=== PATIENT | male | born 1960 | race Caucasian/White ===

== ENCOUNTER 2022-01-27 09:53 | Outpatient (CLI) | payer BC, SELFPAY | END 2022-01-27 09:54 | disposition home or self-care (01) | LOC: LAB 09:54 | PROVIDERS: PCP Family Medicine; Visit Provider Orthopaedic Surgery | DX: Z01.818 Encounter for other preprocedural examination (principal) | CPT/HCPCS: 36415; 86850; 86900; 86901 ==

== ENCOUNTER 2022-01-29 05:54 | Day surgery (SDC) | payer BC, SELFPAY ==
[2022-01-29] VITALS (30 sets, daily range): BP systolic 92–139; BP diastolic 44–93; PULSE 62–120; RESP 16–18; TEMP 35.7–37.1; O2SAT 94–98; BMI 37.1
[2022-01-29] MEDS: CELECOXIB 200 MG CAPSULE PO ×2 (06:06→21:40)
[2022-01-29] MEDS: ACETAMINOPHEN 500 MG TABLET 1000 MG PO ×3 (06:06→21:38)
[2022-01-29] MEDS: OXYCODONE (CR) 10 MG TAB.ER.12H PO (06:06)
[2022-01-29] MEDS: LACTATED RINGERS 1000 ML 1,000 ML 100 ML IV (06:30)
[2022-01-29] MEDS: LACTATED RINGERS 1000 ML 1,000 ML 35 ML IV (06:30)
[2022-01-29] MEDS: MIDAZOLAM HCL 1 MG/ML inj IVP (07:15)
[2022-01-29] MEDS: fentaNYL 100 MCG/2 ML inj IVP (07:15)
--- NOTE | 2022-01-29 07:25 | SUR.PREOP ---
TIME?OUT:?.0710 PT/RN/MDA?VERIFICATION?OF?SURGICAL?SITE,?PROCEDURE,?AND?CONSENT OBTAINED?PRIOR?TO?INVASIVE?PROCEDURE.
--- NOTE | 2022-01-29 08:12 | W.PM.NB ---
Nerve Block Nerve Block Time Seen by Provider: 07:00 Date Seen: 01/29/22 Type of block requested by surgeon for post-operative analgesia: TAINA/LFCN Side: right Time out performed: Yes Verification of patient name: Yes Verification of date of : Yes Site marking: site marked Name of person performing procedure: Andrés Continuous monitoring 1st: Was continuous monitoring of O2 sat, B/P, personnel monitor, recorded every 15 minutes?: Yes Vital Signs: Last Vital Signs Temp 98.8 F 01/29/22 07:02 Pulse 70 01/29/22 07:30 Resp 16 01/29/22 07:30 BP 102/51 L 01/29/22 07:30 Pulse Ox 98 01/29/22 07:30 Procedure Ultrasound guided. Images saved: Yes Medications given in 5ml increments after negative aspiration: Ropivicaine %: 0.5 mL: 30 Needle gauge: 20 Decadron (mg): 10 Precedex (mg): 0.02 Patient tolerated procedure well: Yes
[2022-01-29] MEDS: CEFAZOLIN 2 GM INJ IVP (08:15)
--- NOTE | 2022-01-29 08:17 | CRLHL7_ITS ---
For Patients: As a result of the Cures Act, medical imaging exams and procedure reports are released immediately into your electronic medical record. You may view this report before your referring provider. If you have questions, please contact your health care provider. Indication: Intra op KYM Technique: Single portable view intraoperative Findings: Right hip arthroplasty in satisfactory position. 68 seconds fluoro time. Dictated by Earnestine Valenzuela MD @ 01/29/2022 10:59:26 AM (Electronically Signed)
--- NOTE | 2022-01-29 08:17 | CRLHL7_ITS ---
For Patients: As a result of the Cures Act, medical imaging exams and procedure reports are released immediately into your electronic medical record. You may view this report before your referring provider. If you have questions, please contact your health care provider. Indication: Postop Technique: AP pelvis and right hip views Comparison: No comparison Findings: Right hip arthroplasty in satisfactory position. Normal alignment. Minimal degenerative change of the left hip. Dictated by Earnestine Valenzuela MD @ 01/29/2022 12:01:24 PM (Electronically Signed)
--- NOTE | 2022-01-29 08:28 | W.PM.NB ---
Nerve Block Nerve Block Type of block requested by surgeon for post-operative analgesia: geniculars and total knee (Adductor) Time out performed: Yes Verification of patient name: Yes Verification of date of : Yes Site marking: site marked Procedure Ultrasound guided. Images saved: Yes Medications given in 5ml increments after negative aspiration: Ropivicaine %: 0.5 mL: 30 Needle gauge: 20 Decadron (mg): 10 Precedex (mg): 0.02 Patient tolerated procedure well: Yes Additional comments: Needle noted adjacent to nerve
--- NOTE | 2022-01-29 08:36 | P.ANBPRC_ITS ---
Anesthesia Procedures Epidural Insertion Patient Location: OB Reason for Block: primary anesthetic Patient Position: sitting Performed By: Kelvin Bowen Preanesthetic Checklist: IV checked, risks and benefits discussed, surgical consent, monitors and equipment checked, pre-op evaluation, timeout performed and anesthesia consent Prep: chlorhexidine gluconate Monitoring: blood pressure monitoring, family service counselor, continuous pulse oximetry and heart rate Approach: midline Vertebral Space: lumbar (1-5) Epidural Technique: JOEL saline Needle Type: Tuohy needle Injection Technique: continuous shot (catheter) Needle gauge: 17 Needle Length (cm): 10 cm Needle Insertion Depth (cm): 5 Catheter Gauge: 19 Catheter Type: multi-orifice Catheter at skin depth (cm): 10 Test Dose Result: negative and lidocaine 1.5% with epinephrine 1 to 200,000
--- NOTE | 2022-01-29 08:40 | P.ANBPRC_ITS ---
Anesthesia Procedures Epidural Insertion Patient Location: OB Reason for Block: primary anesthetic Patient Position: sitting Performed By: Kelvin Bowen Preanesthetic Checklist: IV checked, risks and benefits discussed, surgical consent, monitors and equipment checked, pre-op evaluation, timeout performed and anesthesia consent Prep: chlorhexidine gluconate Monitoring: blood pressure monitoring, desk monitor, continuous pulse oximetry and heart rate Approach: midline Vertebral Space: lumbar (1-5) Epidural Technique: JOEL saline Needle Type: Tuohy needle Injection Technique: continuous shot (catheter) Needle gauge: 17 Needle Length (cm): 10 cm Needle Insertion Depth (cm): 5 Catheter Gauge: 19 Catheter Type: multi-orifice Catheter at skin depth (cm): 10 Test Dose Result: negative and lidocaine 1.5% with epinephrine 1 to 200,000
--- NOTE | 2022-01-29 09:54 | P.ORPRC_ITS ---
Procedure Note Procedure: SURGEON: Silver Ansari MD SALES REPRESENTATIVE WIRE ROPE: Dominique Leo PA-C, HOLLIS Sidhu PREOPERATIVE DIAGNOSIS: Right hip osteoarthritis POSTOPERATIVE DIAGNOSIS: Right hip osteoarthritis NAME OF OPERATION: Right total hip arthroplasty IMPLANTS: 1. [employer] [place] # 58 sector ingrowth cup 2. 36 x 58 +4 neutral polyethylene 3. Actis # 7 high offset collared ingrowth stem 4. 36 + 1.5 ceramic femoral head ANESTHESIA: General ESTIMATED BLOOD LOSS: 300 cc COMPLICATIONS: None SPECIMENS: None DRAINS: None PREOPERATIVE ANTIBIOTICS: Ancef 3 grams INDICATIONS: The patient is a 61-year-old with a longstanding history of severe, unrelenting right hip pain secondary to end-stage right hip osteoa rthritis. Despite appropriate nonoperative management, including activity modification, use of an assist device, anti-inflammatories, [id number] pain medication, physical therapy and injections, they continue to have pain and disability. Operative intervention was offered. The risks, benefits and expected outcomes were discussed in detail. These included but were not limited to: Infection, bleeding, injury to blood vessel or nerve, venous thromboembolism. All questions were answered to their satisfaction. Use of an employee relations assistant was necessary throughout the case for patient positioning and safety, soft tissue retraction and closure. PROCEDURE: The patient was placed supine on the [place] table. General anesthesia was administered. The employee relations assistant made sure the patient was properly positioned. The right hip was prepped and draped in the usual sterile fashion. The image intensifier was brought in for a perfect AP pelvis and a perfect double tear drop AP view of each hip which were used for intraoperative templating with our fluoroscopic guide. An oblique incision was made 3 cm distal and 3 cm lateral to the anterior superior iliac spine. The employee relations assistant retracted the soft tissues to protect them. Subcutaneous dissection was taken with electrocautery to the superficial fascia. The fascia was divided in line with the incision. Blunt dissection was carried medially to the tensor fascia beatrice and sartorius interval. Deep dissection was carried with electrocautery. The circumflex vessels were cauterized and divided. The capsule was exposed and then divided in a T- fashion, tagged with #1 Ethibond sutures. Retractors were placed in the joint, held by the employee relations assistant. The corkscrew was placed in the femoral head. The neck cut was made in the subcapital region. We made a second neck cut more distal. The napkin ring of bone was removed. The femoral head was removed intact. Acetabular retractors were placed, held by the employee relations assistant. The labrum was sharply debrided. The capsule was released. The 43 mm reamer was used to the true medial wall. We then enlarged in 2 mm increments using the image intensifier for our reamer placement. We impacted the cup which had excellent purchase. We placed the hole eliminator and the polyethylene. Attention was then turned to the proximal femur. The limb was placed in 140 degrees of external rotation, maximum extension and adduction. A significant amount of time was spent releasing the capsule to allow us to deliver the femur into the wound and complete the femoral side safely. Retractors were held by michael castelan employee relations assistant throughout the femoral preparation. The box feeder and canal finder were used. Broaches were used to a stable size. The calcar reamer was used. Trial components were placed. The hip was reduced and was found to be stable with appropriate soft tissue tension. Length and offset had been nicely restored using the image intensifier and our fluoroscopic guide. Trial components were removed. The stem was impacted. We placed the femoral head. Again, the hip was reduced and was found to be stable with appropriate soft tissue tension. Length and offset had been nicely restored. The employee relations assistant did a three minute dilute Betadine solution soak. The employee relations assistant irrigated the wound with 3 liters of normal saline via pulse lavage. The employee relations assistant repaired the anterior capsule with a #1 Vicryl and our previously placed Ethibond sutures. The employee relations assistant closed the fascia over the tensor fascia beatrice with a #1 PDO Stratafix, subcutaneous tissues with 2-0 Vicryl, skin with a running 3-0 Stratafix and glue. A dry dressing was applied by the employee relations assistant. Sponge and needle counts were correct x 2. The patient tolerated the procedure well; there were no apparent complications. They were awakened and extubated in the operating room, sent to the Post-Anesthesia Care Unit in satisfactory condition. PLAN: 1. The patient will be mobilized with physical therapy, weight-bearing as tolerates 2. Xarelto x 5 days then aspirin x 30 days will be used for DVT prophylaxis 3. The patient will be discharged once medically appropriate
--- NOTE | 2022-01-29 10:43 | W.ANESCHARGE ---
Anesthesia Charges Start Date/Time Anesthesia Start Date: 01/29/22 Anesthesia Start Time: 07:55 Stop Date/Time Anesthesia Stop Date: 01/29/22 Anesthesia Stop Time: 10:40 Summary Emergency: No
[2022-01-29] MEDS: HYDROmorphone 0.5 mg/0.5 ml inj IVP ×2 (11:20→11:34)
[2022-01-29] MEDS: OXYCODONE 5 MG TABLET PO ×4 (12:24→22:14)
--- NOTE | 2022-01-29 13:01 | W.ANESCHARGE ---
Anesthesia Charges Start Date/Time Anesthesia Start Date: 01/29/22 Anesthesia Start Time: 07:55 Stop Date/Time Anesthesia Stop Date: 01/29/22 Anesthesia Stop Time: 10:40 Summary Emergency: No
[2022-01-29] MEDS: CEFAZOLIN 3 GM in 0.9 % SODIUM CHLORIDE 100 ml 100 ML IVPB ×2 (14:20→21:46)
--- NOTE | 2022-01-29 16:26 | P.IMCN_ITS ---
Date of Consult Consult date: 01/29/22 Requesting Physician: Orthopedics Primary Care Provider: Hipolito Delgadillo MD Consult Narrative Reason for consult: 61-year-old male seen in consultation for management of medical problems f Narrative: Ronnie Kidd is a 61 year old male seen in consultation for management of medical problems following right total hip arthroplasty. Procedure performed today by Dr. Ansari. No complications. Postoperatively patient reports doing well. He is having more right knee pain than right hip pain when I see him. The right knee pain has been a long-standing problem prior to surgery. Patient has known osteoarthritis of both knees. There was some suspicion that his right hip arthritis was causing referred right knee pain. Patient has no other concerns at this time. Specifically no nausea or dyspnea. Preoperatively he has been doing well. There were no concerns at his preop evaluation. He has had no recent illness. Patient lives at home with his and his son and her son. 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 Previously this was a physically active job for him but now mostly sitting and standing. His home has 3 steps to get in but then he can live on 1 level temporarily. Review of Systems Narrative: Patient reports no other health concerns today. He has had no chest pain, shortness of breath, cold, fever, sore throat, shortness of breath, nausea, vomiting, abdominal pain, diarrhea, constipation, urinary symptoms including hesitancy or frequency or dysuria. No history of bleeding or blood clotting problems. No previous problems with anesthesia. [facility] Medical History (Updated 01/29/22 @ 16:38 by Israel Quinn MD) Alcohol dependence Ascending aorta dilatation Atherosclerotic heart disease of [place] coronary artery with other forms of angina pectoris Hypertension Latent autoimmune diabetes in adults, managed as type 2 Obstructive sleep apnea syndrome Paroxysmal atrial fibrillation Peripheral arterial occlusive disease Right foot drop Surgical History (Updated 01/28/22 @ 13:54 by Ame Busch RN) Status post vasectomy Social History Smoking Status: Never smoker Do you use any of these nicotine containing products: None Second hand tobacco smoke exposure: No How often do you have a drink containing alcohol: never How often do you have six or more drinks on one occasion: Never AUDIT-C Alcohol total score: 0 Non-prescribed substance use: denies use Caffeine: Yes service: No Meds Home Medications and Allergies Home Medications Medication Instructions Recorded Confirmed Type atorvastatin 20 mg tablet 20 mg PO HS 01/23/22 01/29/22 History chlorthalidone 25 mg tablet 25 mg PO DAILY 01/23/22 01/29/22 History furosemide 20 mg tablet 20 mg PO DAILY PRN 01/23/22 01/29/22 History gabapentin 100 mg capsule 200 mg PO HS 01/23/22 01/29/22 History lisinopril 40 mg tablet 40 mg PO DAILY 01/23/22 01/29/22 History metformin 500 mg tablet See Rx Instructions .ROUTE .COMPLEX 01/23/22 01/29/22 History metoprolol succinate 100 mg 100 mg PO DAILY 01/23/22 01/29/22 History tablet,extended release 24 hr rivaroxaban 20 mg tablet 20 mg PO DAILY 01/23/22 01/29/22 History Allergies Allergy/AdvReac Type Severity Reaction Status Date / Time No Known Allergies Allergy Verified 01/29/22 06:08 Exam Narrative: Exam Narrative: he is alert and appears in no distress. He gives his own history. Head is normal. Eyes normal. Oropharynx with very small airway. Neck is supple without mass or adenopathy. Respirations are clear to auscultation. Breathing is unlabored. No wheezing, rales, rhonchi. Cardiovascular: S1, S2, Irregular rhythm. Abdomen: Bowel sounds active. Abdomen is soft without tenderness or mass. External genitalia normal. He has a right footdrop which has been present for 22 years. Intact pulses and sensation in both feet. Right knee without obvious warmth, redness, effusion, signs of trauma or tenderness on palpation. No lower extremity edema Const: Vital Signs, click to edit/add: Vital Signs - 24 hr 01/29/22 07:02 01/29/22 07:15 01/29/22 07:20 Temperature 98.8 F Pulse Rate 83 64 62 Pulse Rate [Left P ulse Oximeter] Respiratory Rate 16 16 16 Blood Pressure 139/85 113/80 114/80 Blood Pressure [Ri ght Arm] Pulse Oximetry 98 98 98 01/29/22 07:25 01/29/22 07:30 01/29/22 10:34 Temperature 98.2 F Pulse Rate 74 70 90 Pulse Rate [Left P ulse Oximeter] Respiratory Rate 16 16 16 Blood Pressure 100/65 102/51 L 92/72 Blood Pressure [Ri ght Arm] Pulse Oximetry 98 98 98 01/29/22 10:45 01/29/22 10:50 01/29/22 10:55 Temperature 98.2 F Pulse Rate 99 70 85 Pulse Rate [Left P ulse Oximeter] Respiratory Rate 16 16 18 Blood Pressure 95/59 L 105/44 L 100/83 Blood Pressure [Ri ght Arm] Pulse Oximetry 97 98 98 01/29/22 11:00 01/29/22 11:10 01/29/22 11:15 Temperature 98.2 F 98.2 F Pulse Rate 83 81 78 Pulse Rate [Left P ulse Oximeter] Respiratory Rate 18 16 16 Blood Pressure 113/81 111/66 107/82 Blood Pressure [Ri ght Arm] Pulse Oximetry 97 98 98 01/29/22 11:25 01/29/22 11:30 01/29/22 11:35 Temperature 98.8 F 98.2 F Pulse Rate 70 70 81 Pulse Rate [Left P ulse Oximeter] Respiratory Rate 16 18 16 Blood Pressure 107/82 98/54 L 100/62 Blood Pressure [Ri ght Arm] Pulse Oximetry 98 98 98 01/29/22 11:45 01/29/22 12:00 01/29/22 12:15 Temperature 96.2 F L 96.5 F L 96.5 F L Pulse Rate 87 Pulse Rate [Left P ulse Oximeter] 87 79 84 Respiratory Rate 16 18 18 Blood Pressure 110/58 L Blood Pressure [Ri ght Arm] 110/73 106/78 112/79 Pulse Oximetry 96 95 96 01/29/22 12:30 01/29/22 12:45 01/29/22 13:15 Temperature 96.7 F L 96.7 F L 96.7 F L Pulse Rate Pulse Rate [Left P ulse Oximeter] 84 80 84 Respiratory Rate 18 18 18 Blood Pressure Blood Pressure [Ri ght Arm] 121/75 110/84 112/75 Pulse Oximetry 97 97 98 01/29/22 14:00 Temperature 96.9 F L Pulse Rate Pulse Rate [Left P ulse Oximeter] 83 Respiratory Rate 16 Blood Pressure Blood Pressure [Ri ght Arm] 105/70 Pulse Oximetry 94 Documenting provider has reviewed patient's vital signs: yes Assessment and Plan Assessment and plan (1) Right foot drop: Problem comment: AFO Status: Acute Assessment and Plan: use AFO (2) Latent autoimmune diabetes in adults, managed as type 2: Problem comment: resume metformin and sliding scale insulin Status: Acute (3) Obstructive sleep apnea syndrome: Problem comment: on home CPAP. Status: Acute Assessment and Plan: Family to bring in home CPAP (4) Paroxysmal atrial fibrillation: Problem comment: on anticoagulation with rivaroxaban and rate control with metoprolol. Status: Acute Assessment and Plan: resume metformin and rivaroxaban (5) Hypertension: Status: Acute Assessment and Plan: resume blood pressure medicines as blood pressure allows.
[2022-01-29] MEDS: LACTATED RINGERS 1000 ML 1,000 ML 75 ML IV (16:43)
[2022-01-29] MEDS: METFORMIN 500 MG TABLET 1000 MG PO (19:15)
[2022-01-29] MEDS: GABAPENTIN 100 MG CAPSULE 200 MG PO (21:39)
[2022-01-29] MEDS: SENNOSIDES 1 TAB TABLET 2 TAB PO (21:40)
[2022-01-29] MEDS: ATORVASTATIN 10 MG TABLET 20 MG PO (21:40)
[2022-01-29] MEDS: METOPROLOL SUCCINATE (XL) 100 MG TAB PO (22:16)
[2022-01-29 22:25] LABS: Glucose, Point-of-Care* 190 mg/dl (60-115)
--- NOTE | 2022-01-29 23:00 | PC.NURSE ---
Shift Note [id number]: At 1900 VS assessment pt HR increased to 120. Previous HR's in 80's. MD updated and pt given PO dose of Metoprolol. VS otherwise WNL. Surgical dressing to right hip C,D,&I with active ice. Moves well with SBA.
[2022-01-30 02:04] VITALS: TEMP 36.8
[2022-01-30] MEDS: ACETAMINOPHEN 500 MG TABLET 1000 MG PO ×2 (02:04→09:05)
[2022-01-30 03:00] VITALS: BP 113/82; PULSE 111; RESP 16; TEMP 36.8; O2SAT 95
[2022-01-30] MEDS: CEFAZOLIN 3 GM in 0.9 % SODIUM CHLORIDE 100 ml 100 ML IVPB (05:42)
[2022-01-30] MEDS: OXYCODONE 5 MG TABLET PO ×2 (06:24→10:52)
--- NOTE | 2022-01-30 06:56 | PC.NURSE ---
shift note 23-07: pt pleasant and cooperative. rating pain 2/10 at rest and 5-6/10 with ambulation. SBA with walker and gb, tolerating ambulating to BR very well. VSS. Dressing to surgical site CDI, active ice on.
[2022-01-30 07:45] LABS: INR 0.95 (0.91-1.10); Prothrombin Time 13.1 Seconds
[2022-01-30 08:00] VITALS: BP 121/92; PULSE 77; RESP 18; TEMP 36.7; O2SAT 97
[2022-01-30] MEDS: RIVAROXABAN 10 MG TABLET 20 MG PO (09:06)
[2022-01-30] MEDS: SENNOSIDES 1 TAB TABLET 2 TAB PO (09:06)
[2022-01-30] MEDS: CELECOXIB 200 MG CAPSULE PO (09:07)
[2022-01-30] MEDS: METFORMIN 500 MG TABLET PO (09:07)
[2022-01-30] MEDS: METOPROLOL SUCCINATE (XL) 100 MG TAB PO (09:09)
--- NOTE | 2022-01-30 10:59 | P.DS_ITS ---
DS: Providers Provider Time Seen by Provider: 10:59 Date Seen: 01/30/22 Primary care physician: Hipolito Delgadillo MD Consults: 01/29/22 09:50 Consult to Occupational Therapy [CONS] Routine Comment: See nursing Activity Order Reason(s) for OT Consult:: Evaluate and Treat Any Restrictions?:: No Restrictions Consult to Physical Therapy [CONS] Routine Comment: Ambulate in the burger today. Reason(s) for PT Consult:: Evaluate and Treat Any Restrictions?:: No Restrictions Consult to Senior Applications Developer [CONS] Routine Comment: Reason for Consult:: Discharge Planning Needs Attending Physician on discharge: Silver Ansari MD Date of Discharge: 01/30/22 DS: Diagnosis Discharge Diagnosis (1) Right foot drop: Status: Acute Problem details: AFO (2) Paroxysmal atrial fibrillation: Status: Acute (3) Hypertension: Status: Acute Problem details: blood pressure adequately controlled. Resume home medications on discharge. (4) Paroxysmal atrial fibrillation: Status: Acute Problem details: on anticoagulation with rivaroxaban and rate control with metoprolol. Some tachycardia yesterday because he did not take metoprolol yesterday morning. This improved with resumption of metoprolol (5) Obstructive sleep apnea syndrome: Status: Acute Problem details: on home CPAP. DS: Summary Hospital Course Hospital Course: patient had it right total hip arthroplasty. Postoperatively primarily concerned about right knee pain. That is much better today. He is doing well with ambulation with physical therapy and occupational therapy. Time Spent with Patient Time attestation: Total time spent providing and/or coordinating discharge services: Time spent: Less than 30 minutes Exam Narrative: Exam Narrative: He is alert and appears in no distress. Breathing is unlabored. He is moving well with therapy. He is wearing his AFO today. Const: Vital Signs, click to edit/add: Vital Signs - 24 hr 01/29/22 11:00 01/29/22 11:10 01/29/22 11:15 Temperature 98.2 F 98.2 F Pulse Rate 83 81 78 Pulse Rate [Left P ulse Oximeter] Respiratory Rate 18 16 16 Blood Pressure 113/81 111/66 107/82 Blood Pressure [Ri ght Arm] Pulse Oximetry 97 98 98 01/29/22 11:25 01/29/22 11:30 01/29/22 11:35 Temperature 98.8 F 98.2 F Pulse Rate 70 70 81 Pulse Rate [Left P ulse Oximeter] Respiratory Rate 16 18 16 Blood Pressure 107/82 98/54 L 100/62 Blood Pressure [Ri ght Arm] Pulse Oximetry 98 98 98 01/29/22 11:45 01/29/22 12:00 01/29/22 12:15 Temperature 96.2 F L 96.5 F L 96.5 F L Pulse Rate 87 Pulse Rate [Left P ulse Oximeter] 87 79 84 Respiratory Rate 16 18 18 Blood Pressure 110/58 L Blood Pressure [Ri ght Arm] 110/73 106/78 112/79 Pulse Oximetry 96 95 96 01/29/22 12:30 01/29/22 12:45 01/29/22 13:15 Temperature 96.7 F L 96.7 F L 96.7 F L Pulse Rate Pulse Rate [Left P ulse Oximeter] 84 80 84 Respiratory Rate 18 18 18 Blood Pressure Blood Pressure [Ri ght Arm] 121/75 110/84 112/75 Pulse Oximetry 97 97 98 01/29/22 14:00 01/29/22 15:00 01/29/22 15:15 Temperature 96.9 F L 97.7 F Pulse Rate Pulse Rate [Left P ulse Oximeter] 83 84 85 Respiratory Rate 16 16 Blood Pressure Blood Pressure [Ri ght Arm] 105/70 106/75 Pulse Oximetry 94 96 01/29/22 16:00 01/29/22 17:00 01/29/22 18:00 Temperature 98.2 F 98.8 F Pulse Rate Pulse Rate [Left P ulse Oximeter] 85 120 H 111 H Respiratory Rate 16 16 16 Blood Pressure Blood Pressure [Ri ght Arm] 123/80 122/83 119/78 Pulse Oximetry 97 96 96 01/29/22 21:38 01/29/22 23:00 01/29/22 23:22 Temperature 98.6 F 98.5 F 98.6 F Pulse Rate Pulse Rate [Left P ulse Oximeter] 95 Respiratory Rate 16 Blood Pressure Blood Pressure [Ri ght Arm] 135/93 H Pulse Oximetry 98 01/30/22 02:04 01/30/22 03:00 01/30/22 08:00 Temperature 98.3 F 98.3 F 98.1 F Pulse Rate Pulse Rate [Left P ulse Oximeter] 111 H 77 Respiratory Rate 16 18 Blood Pressure Blood Pressure [Ri ght Arm] 113/82 121/92 H Pulse Oximetry 95 97 Documenting provider has reviewed patient's vital signs: yes DS: Data Data Completed and Pending Labs on day of discharge: Labs from last 24 hours 01/30/22 01/29/22 06:18 16:30 INR 0.95 POC Glucose 190 H Discharge Plan Discharge Disposition: Home, Self-Care Discharging Surgeon: Silver Ansari Follow-Up Appointment: 1 week Prescriptions: New acetaminophen 500 mg Tablet 500 - 1,000 mg PO Q6H PRN (Reason: prn) Qty: 100 0RF oxycodone 5 mg Tablet 2.5 - 5 mg PO Q4-6H PRN (Reason: Pain) Qty: 42 0RF Rx Instructions: Minimize. Discontinue as soon as possible sennosides [Senna Lax] 8.6 mg Tablet 2 tab PO BID PRN (Reason: prn) Qty: 100 0RF Continued atorvastatin 20 mg tablet 20 mg PO HS 0RF chlorthalidone 25 mg tablet 25 mg PO DAILY 0RF furosemide 20 mg tablet 20 mg PO DAILY PRN0RF gabapentin 100 mg capsule 200 mg PO HS 0RF lisinopril 40 mg tablet 40 mg PO DAILY 0RF metformin 500 mg tablet See Rx Instructions .ROUTE .COMPLEX 0RF Label Comments: 500 MG WITH BREAKFAST 1000 MG WITH SUPPER Rx Instructions: 500-1000 BIDWM 500 MG BREAKFAST 1000 MG SUPPER metoprolol succinate 100 mg tablet extended release 24 hr 100 mg PO DAILY 0RF rivaroxaban 20 mg tablet 20 mg PO DAILY 0RF Rx Instructions: WITH MEAL Activity Level: Activity as Tolerated, No strenuous activity and Use Walker Activity Detail: attend outpatient PT Discharge Diet: Diabetic Additional Instructions: dressing is waterproof. May shower. leave the dressing on. Notify Orthopedics with any questions or concerns Forms: Work/Release Restrictions Follow-up: Luz Webb [Other] - 02/05/22 11:00 am (Schedule 6 week surgeon appointment at this time. ) Silver Ansari MD [Staff Physician] - (Schedule 6 week appointment at your 1 week PA appointment.) Hipolito Delgadillo MD [Primary Care Provider] - Discharge Orders: Discharge Order (Routine); Ordered 01/30/22 Ordered By: Israel Quinn
--- NOTE | 2022-01-30 12:55 | PC.NURSE ---
PATIENT DISCHARGED TO HOME WITH , UP SBA WITH WALKER AND BELT TOLERATING WELL, TOLERATING REGULAR DIET, RATING PAIN 2-3/10 IN RIGHT HIP AT REST AND 5/10 WITH MOVEMENT, BEING MANAGED WITH PRN OXYCODONE AND SCHEDULED TYLENOL, DRESSING TO RIGHT HIP CDI, PATIENT AND VERBALIZED UNDERSTANDING OF DISCHARGE INFORMATION AND HAD NO FURTHER QUESTIONS AT THIS TIME, IV REMOVED, BELONGING FORM SIGNED.
--- NOTE | 2022-01-30 13:18 | PM.ORPN ---
Subjective Subjective Time Seen by Provider: 12:01 Date Seen: 01/30/22 Principal diagnosis: Status post total hip arthroplasty right Ortho Exam Narrative Exam Narrative: Alert and oriented x3. Patient is in no acute distress. Converses without labored breathing. Hearing is grossly intact. Ambulates with a Walker. Right hip dressing is in place. Mild soft tissue edema about the right hip. No ecchymosis. Bilateral calves are soft and nontender. Foot drop right lower extremity has been present for many years. Const Vital Signs, click to edit/add: Vital Signs - 24 hr 01/29/22 14:00 01/29/22 15:00 01/29/22 15:15 Temperature 96.9 F L 97.7 F Pulse Rate [Left Pulse Oximeter] 83 84 85 Respiratory Rate 16 16 Blood Pressure [Right Arm] 105/70 106/75 Pulse Oximetry 94 96 01/29/22 16:00 01/29/22 17:00 01/29/22 18:00 Temperature 98.2 F 98.8 F Pulse Rate [Left Pulse Oximeter] 85 120 H 111 H Respiratory Rate 16 16 16 Blood Pressure [Right Arm] 123/80 122/83 119/78 Pulse Oximetry 97 96 96 01/29/22 21:38 01/29/22 23:00 01/29/22 23:22 Temperature 98.6 F 98.5 F 98.6 F Pulse Rate [Left Pulse Oximeter] 95 Respiratory Rate 16 Blood Pressure [Right Arm] 135/93 H Pulse Oximetry 98 01/30/22 02:04 01/30/22 03:00 01/30/22 08:00 Temperature 98.3 F 98.3 F 98.1 F Pulse Rate [Left Pulse Oximeter] 111 H 77 Respiratory Rate 16 18 Blood Pressure [Right Arm] 113/82 121/92 H Pulse Oximetry 95 97 Documenting provider has reviewed patient's vital signs: yes Skin Common normals: Yes no rashes or lesions noted and Yes skin turgor normal General skin exam: Yes no rashes or lesions noted and Yes turgor normal Assessment and Plan Assessment and plan (1) Right foot drop: Problem details: AFO Status: Acute (2) Paroxysmal atrial fibrillation: Status: Acute (3) Hypertension: Problem details: blood pressure adequately controlled. Resume home medications on discharge. Status: Acute (4) Paroxysmal atrial fibrillation: Problem details: on anticoagulation with rivaroxaban and rate control with metoprolol. Some tachycardia yesterday because he did not take metoprolol yesterday morning. This improved with resumption of metoprolol Status: Acute (5) Obstructive sleep apnea syndrome: Problem details: on home CPAP. Status: Acute Plan Plan for discharge is today to home if they meet discharge criteria. DVT prophylaxis includes Xarelto, Ector stockings x1 month may remove for 1 hr per day, frequent ambulation Leave dressing in place. Observe wound and phone Orthopedics with any questions or concerns Use Ice on operative hip unrestricted. Return to clinic in 1 week with PA for a wound check Return to clinic in [address] Ansari Minimize narcotic use. Wean off and discontinue soon as possible. Activities as tolerated. No strenuous activity. Attend outpt PT
== END 2022-01-30 12:10 | disposition home or self-care (01) ==
LOC: OR 06:34 → MEDSURG 06:42
PROVIDERS: Family Medicine; PCP Family Medicine; Visit Provider Orthopaedic Surgery
PROC: (CPT 27130; principal; 2022-01-29 07:45)
DX: M16.11 Unilateral primary osteoarthritis, right hip (principal); M17.0 Bilateral primary osteoarthritis of knee; I10 Essential (primary) hypertension; I48.0 Paroxysmal atrial fibrillation; I77.819 Aortic ectasia, unspecified site; I77.89 Other specified disorders of arteries and arterioles; M21.371 Foot drop, right foot; G47.33 Obstructive sleep apnea (adult) (pediatric); I25.119 Atherosclerotic heart disease of native coronary artery with unspecified angina pectoris; E11.9 Type 2 diabetes mellitus without complications; Z79.84 Long term (current) use of oral hypoglycemic drugs; Z79.4 Long term (current) use of insulin; Z79.01 Long term (current) use of anticoagulants
CPT/HCPCS: 27130; 1214; 36415; 64415; 73501; 76942; 82947; 85610; 97110; 97116; 97161; 97165; 97535; A9270; C1776; J0330; J0690; J1100; J1170; J2250; J2405; J2704; J2710; J2795; J3010; J7120

== ENCOUNTER 2022-03-11 09:30 | Outpatient (RCR) | payer BC, SELFPAY | END 2022-05-05 14:58 | disposition home or self-care (01) | PROVIDERS: PCP Family Medicine; Visit Provider Orthopaedic Surgery | DX: M25.551 Pain in right hip (principal); R26.9 Unspecified abnormalities of gait and mobility; Z51.89 Encounter for other specified aftercare | CPT/HCPCS: 97110; 97116; 97140; 97164 ==

== ENCOUNTER 2022-04-07 08:01 | Outpatient (CLI) | payer BC, SELFPAY | END 2022-04-07 08:02 | disposition home or self-care (01) | LOC: LONREF 08:03 | PROVIDERS: PCP Family Medicine; Visit Provider Family Medicine | DX: I10 Essential (primary) hypertension (principal); E78.5 Hyperlipidemia, unspecified; Z13.29 Encounter for screening for other suspected endocrine disorder | CPT/HCPCS: 84443 ==

== ENCOUNTER 2022-09-22 08:30 | Outpatient (CLI) | payer BC, SELFPAY ==
[2022-09-22 13:53] LABS: Chloride* 108 mmol/L (96-114); Potassium* 4.9 mmol/L (3.6-5.1); Sodium* 140 mmol/L (135-149)
[2022-09-22 13:56] LABS: Blood Urea Nitrogen* 26 mg/dL (7-30); Carbon Dioxide* 26 mmol/L (20-32); Cholesterol* 200 mg/dL (90-199); Creatinine* 1.1 mg/dL (0.5-1.5); Estimated Glomerular Filt Rate 76 ml/min; Glucose* 153 mg/dL (60-115); Triglycerides* 239 mg/dL (40-149)
[2022-09-22 13:57] LABS: Calcium* 10.1 mg/dL (8.4-10.6); HDL Cholesterol* 58 mg/dL (>=40); LDL Cholesterol Calculated 94 mg/dL (<100)
[2022-09-22 14:27] LABS: PSA Screen* 2.03 ng/mL (0.10-4.00)
== END 2022-09-22 08:31 | disposition home or self-care (01) ==
PROVIDERS: PCP Family Medicine; Visit Provider Family Medicine
DX: I10 Essential (primary) hypertension (principal); E78.5 Hyperlipidemia, unspecified; Z12.5 Encounter for screening for malignant neoplasm of prostate
CPT/HCPCS: 80048; 80061; 84153

== ENCOUNTER 2023-05-05 13:20 | Outpatient (CLI) | payer BC, SELFPAY | END 2023-05-05 13:21 | disposition home or self-care (01) | LOC: LONREF 13:26 | PROVIDERS: PCP Family Medicine; Visit Provider Family Medicine | DX: E78.5 Hyperlipidemia, unspecified (principal); I10 Essential (primary) hypertension | CPT/HCPCS: 80061 ==

== ENCOUNTER 2023-12-20 10:23 | Outpatient (CLI) | payer BC, SELFPAY | END 2023-12-20 10:24 | disposition home or self-care (01) | LOC: LKVREF 10:26 | PROVIDERS: PCP Family Medicine; Visit Provider Family Medicine | DX: I10 Essential (primary) hypertension (principal) | CPT/HCPCS: 80048 ==

== ENCOUNTER 2023-12-28 08:48 | Outpatient (CLI) | payer BC, SELFPAY ==
--- NOTE | 2023-12-28 09:00 | CRLHL7_ITS ---
For Patients: As a result of the Century Cures Act, medical imaging exams and procedure reports are released immediately into your electronic medical record. You may view this report before your referring provider. If you have questions, please contact your health care provider. INDICATION: Follow-up thoracic aortic aneurysm TECHNIQUE: CT chest without contrast. COMPARISON: 09/26/[address] FINDINGS: Lungs and pleura: Few tiny calcified and noncalcified nodules are unchanged and should be benign. No pleural effusions, pleural thickening, or pneumothorax. Heart and vasculature: Ascending aorta measures 4.4 cm similar to previous study. Pulmonary artery is 4.0 cm versus 4.2 cm. Lymph nodes/mediastinum: Stable upper limits normal right paratracheal node. No cintia adenopathy. Thyroid gland is normal. Chest wall: No masses. Upper abdomen: Normal. Bones: Unremarkable for age. IMPRESSION: 1. 4.4 cm ascending aorta. 2. Enlarged main pulmonary artery. Please note that all CT scans at this facility use dose modulation, iterative reconstruction, and/or weight-based dosing when appropriate to reduce radiation dose to as low as reasonably achievable. Dictated by Jalil Ponce MD @ 12/28/2023 12:19:11 PM (Electronically Signed)
== END 2023-12-28 08:49 | disposition home or self-care (01) ==
LOC: CT 08:49
PROVIDERS: PCP Family Medicine; Visit Provider Family Medicine
DX: I77.810 Thoracic aortic ectasia (principal); I77.89 Other specified disorders of arteries and arterioles
CPT/HCPCS: 71250

== ENCOUNTER 2024-01-11 08:51 | Day surgery (SDC) | payer BC, SELFPAY ==
[2024-01-11] VITALS (35 sets, daily range): BP systolic 82–130; BP diastolic 47–99; PULSE 51–122; RESP 16–22; TEMP 35.9–37.1; O2SAT 85–99; BMI 42.6
[2024-01-11] MEDS: LACTATED RINGERS 1000 ML 1,000 ML 100 ML IV ×2 (08:30→11:51)
[2024-01-11] MEDS: ACETAMINOPHEN 500 MG TABLET 1000 MG PO ×3 (09:34→22:09)
[2024-01-11] MEDS: OXYCODONE (CR) 10 MG TAB.ER.12H PO (09:34)
[2024-01-11] MEDS: CELECOXIB 200 MG CAPSULE PO (09:35)
[2024-01-11] MEDS: SODIUM CHLORIDE 0.9 % (FLUSH) 10 ML SYRINGE IVF (09:35)
--- NOTE | 2024-01-11 10:14 | SUR.PREOP ---
TIME?OUT:?1018 PT/RN/MDA?VERIFICATION?OF?SURGICAL?SITE Left Hip,?PROCEDURE Nerve Block,?AND?CONSENT OBTAINED?PRIOR?TO?INVASIVE?PROCEDURE.
--- NOTE | 2024-01-11 10:15 | CRLHL7_ITS ---
For Patients: As a result of the Cures Act, medical imaging exams and procedure reports are released immediately into your electronic medical record. You may view this report before your referring provider. If you have questions, please contact your health care provider. Indication: Hip replacement surgery Technique: AP hip fluoroscopic image. Fluoroscopy time 85.9 seconds. Findings/Impression: Hardware from a left total hip arthroplasty is in satisfactory position. Dictated by Michel Peraza MD @ 01/11/2024 1:09:05 PM (Electronically Signed)
[2024-01-11] MEDS: fentaNYL 100 MCG/2 ML inj IVP (10:19)
[2024-01-11] MEDS: MIDAZOLAM HCL 1 MG/ML inj IVP (10:19)
--- NOTE | 2024-01-11 10:25 | W.ANESCHARGE ---
Anesthesia Charges Start Date/Time Anesthesia Start Date: 01/11/24 Anesthesia Start Time: 10:33 Stop Date/Time Anesthesia Stop Date: 01/11/24 Anesthesia Stop Time: 13:55
--- NOTE | 2024-01-11 10:25 | W.PM.NB ---
Nerve Block Nerve Block Time Seen by Provider: 10:23 Date Seen: 01/11/24 Type of block requested by surgeon for post-operative analgesia: TAINA/LFCN Side: left Time out performed: Yes Verification of patient name: Yes Verification of date of : Yes Site marking: site marked Name of person performing procedure: Andrés Continuous monitoring Was continuous monitoring of O2 sat, B/P, satellite project site monitor, recorded every 15 minutes?: Yes Procedure Checklist: sterile prep, needles and gloves Ultrasound guided. Images saved: Yes Medications given in 5ml increments after negative aspiration: Ropivicaine %: 0.5 mL: 30 Needle gauge: 20 Decadron (mg): 10 Precedex (mcg): 25 Patient tolerated procedure well: Yes Additional comments: Needle noted below psoas tendon needle noted adjacent to LFCN Block Charges Block Charge (with Pro Fee): Other Periph Nerve Block Use of Ultrasound Machine for Block: Yes- US Guidance/pain block
[2024-01-11] MEDS: CEFAZOLIN 2 GM INJ IVP (10:37)
[2024-01-11] MEDS: TRANEXAMIC ACID 100 MG/ML INJ 1000 MG IV (10:45)
--- NOTE | 2024-01-11 12:50 | CRLHL7_ITS ---
For Patients: As a result of the Century Cures Act, medical imaging exams and procedure reports are released immediately into your electronic medical record. You may view this report before your referring provider. If you have questions, please contact your health care provider. INDICATION: Postop KYM. TECHNIQUE: AP pelvis and lateral left hip. FINDINGS: New left KYM. Components appear well seated. Also noted is a right KYM. Dictated by Jalil Ponce MD @ 01/12/2024 1:22:27 PM (Electronically Signed)
--- NOTE | 2024-01-11 12:53 | PM.ORPRC ---
Procedure Note Date of procedure: 01/11/24 Procedure: PREOPERATIVE DIAGNOSIS: Left hip osteoarthritis POSTOPERATIVE DIAGNOSIS: Left hip osteoarthritis NAME OF OPERATION: Left total hip arthroplasty SURGEON: Silver Ansari MD INTERFACE DESIGNER: Dominique Leo PA-C, Luz Watson PA-C IMPLANTS: 1. [employer] [place] # 56 sector ingrowth cup 2. 36 x 56 +4 neutral polyethylene 3. Actis # 7 high offset collared ingrowth stem 4. 36 + 1.5 ceramic femoral head ANESTHESIA: General ESTIMATED BLOOD LOSS: 200 cc COMPLICATIONS: None SPECIMENS: None DRAINS: None PREOPERATIVE ANTIBIOTICS: Ancef 3 grams INDICATIONS: The patient is a 63-year-old with a longstanding history of severe, unrelenting left hip pain secondary to end-stage left hip osteoarthritis. Despite appropriate nonoperative management, including activity modification, use of an assist device, anti-inflammatories, [id number] pain medication, physical therapy and injections, they continue to have pain and disability. Operative intervention was offered. The risks, benefits and expected outcomes were discussed in detail. These included but were not limited to: Infection, bleeding, injury to blood vessel or nerve, venous thromboembolism. All questions were answered to their satisfaction. Use of an certified ophthalmic surgical assistant was necessary throughout the case for patient positioning and safety, soft tissue retraction and closure. A modifier 22 should be added to this case. The patient's weight of 143 kg with a BMI of 43 made exposure near impossible. This more than triple the time typically required to complete the case. PROCEDURE: The patient was placed supine on the [place] table. General anesthesia was administered. The certified ophthalmic surgical assistant made sure the patient was properly positioned. The left hip was prepped and draped in the usual sterile fashion. The image intensifier was brought in for a perfect AP pelvis and a perfect double tear drop AP view of each hip which were used for intraoperative templating with our fluoroscopic guide. An oblique incision was made 3 cm distal and 3 cm lateral to the anterior superior iliac spine. The certified ophthalmic surgical assistant retracted the soft tissues to protect them. Subcutaneous dissection was taken with electrocautery to the superficial fascia. The fascia was divided in line with the incision. Blunt dissection was carried medially to the tensor fascia beatrice and sartorius interval. Deep dissection was carried with electrocautery. The circumflex vessels were cauterized and divided. The capsule was exposed and then divided in a T-fashion, tagged with #1 Ethibond sutures. Retractors were placed in the joint, held by the certified ophthalmic surgical assistant. The corkscrew was placed in the femoral head. The neck cut was made in the subcapital region. We made a second neck cut more distal. The napkin ring of bone was removed. The femoral head was removed intact. Acetabular retractors were placed, held by the certified ophthalmic surgical assistant. The labrum was sharply debrided. The capsule was released. The 43 mm reamer was used to the true medial wall. We then enlarged in 2 mm increments using the image intensifier for our reamer placement. We impacted the cup which had excellent purchase. We placed the polyethylene. Attention was then turned to the proximal femur. The limb was placed in 140 degrees of external rotation, maximum extension and adduction. A significant amount of time was spent releasing the capsule to allow us to deliver the femur into the wound and complete the femoral side safely. Retractors were held by the certified ophthalmic surgical assistant throughout the femoral preparation. The hand box coverer and canal finder were used. Broaches were used to a stable size. The calcar reamer was used. Trial components were placed. The hip was reduced and was found to be stable with appropriate soft tissue tension. Length and offset had been nicely restored using the image intensifier and our fluoroscopic guide. Trial components were removed. The stem was impacted. We placed the femoral head. Again, the hip was reduced and was found to be stable with appropriate soft tissue tension. Length and offset had been nicely restored. The certified ophthalmic surgical assistant did a three minute dilute Betadine solution soak. The certified ophthalmic surgical assistant irrigated the wound with 3 liters of normal saline via pulse lavage. The certified ophthalmic surgical assistant repaired the anterior capsule with a #1 Vicryl and our previously placed Ethibond sutures. The certified ophthalmic surgical assistant closed the fascia over the tensor fascia beatrice with a #1 PDO Stratafix, subcutaneous tissues with 2-0 Vicryl, skin with a running 3-0 Stratafix and glue. A dry dressing was applied by the certified ophthalmic surgical assistant. Sponge and needle counts were correct x 2. The patient tolerated the procedure well; there were no apparent complications. They were awakened and extubated in the operating room, sent to the Post-Anesthesia Care Unit in satisfactory condition. PLAN: 1. The patient will be mobilized with physical therapy, weight-bearing as tolerates 2. The usual dose of Xarelto can be restarted for DVT prophylaxis 3. The patient will be discharged once medically appropriate
--- NOTE | 2024-01-11 13:58 | W.ANESCHARGE ---
Anesthesia Charges Start Date/Time Anesthesia Start Date: 01/11/24 Anesthesia Start Time: 10:33 Stop Date/Time Anesthesia Stop Date: 01/11/24 Anesthesia Stop Time: 13:55
[2024-01-11] MEDS: ePHEDrine sulfate 5 MG/ML inj IVP ×2 (14:17→14:30)
[2024-01-11] MEDS: PHENYLEPHRINE 100 MCG/ML SYRINGE IVP ×3 (14:17→14:43)
[2024-01-11] MEDS: fentaNYL 100 MCG/2 ML inj 50 MCG IVP ×2 (14:18→14:38)
[2024-01-11] MEDS: HYDROmorphone 0.5 mg/0.5 ml inj IVP ×2 (14:26→14:45)
[2024-01-11] MEDS: LACTATED RINGERS 1000 ML IV (15:06)
[2024-01-11] MEDS: LACTATED RINGERS 1000 ML 1,000 ML 75 ML IV (15:46)
[2024-01-11] MEDS: LACTATED RINGERS 500 ML 500 ML IV (15:46)
[2024-01-11] MEDS: CEFAZOLIN 3 GM in 0.9 % SODIUM CHLORIDE Mini-bag 100 ML IVPB (18:17)
[2024-01-11] MEDS: OXYCODONE 5 MG TABLET PO ×2 (18:23→22:42)
[2024-01-11] MEDS: METOPROLOL TARTRATE 1 MG/ML inj 5 MG IVP (18:24)
--- NOTE | 2024-01-11 18:48 | P.IMCN_ITS ---
Date of Consult Patient: [facility] Patient Consult date: 01/11/24 Requesting Physician: Orthopedics Primary Care Provider: Hipolito Delgadillo MD Consult Narrative Narrative: Ronnie Kidd is a 63 year old male with obesity, atrial fibrillation, obstructive sleep apnea, diabetes who was admitted to the hospital today for left total hip arthroplasty. Procedure performed by Dr. Ansari. No operative complications. Estimated blood loss of 200 mL. Postoperatively he reports he is doing well. He has fairly good pain control. He has a dry mouth and mild nausea. Nursing staff note that he is mildly tachycardic with his AFib and his blood pressure is relatively low. They also note that he is mildly hypoxic with or without his CPAP in place. He has no dyspnea when he has hypoxia. Patient reports doing well prior to surgery. He has had no recent illness. Preop physical did not identify any significant concerns to be addressed in the perioperative. Review of Systems Narrative: Patient reports no other concerns today. Even with his hypoxia he reports no dyspnea. He has no chest pain, cough, lightheadedness, chills PFSH PFS Medical History (Updated 01/11/24 @ 19:01 by Israel Quinn MD) Ascending aorta dilatation ?I77.810 - Thoracic aortic ectasia (ICD-10) Diabetic neuropathy ?E11.40 - Type 2 diabetes mellitus with diabetic neuropathy, unspecified (ICD-10) Persistent atrial fibrillation ?I48.19 - Other persistent atrial fibrillation (ICD-10) Hyperlipidemia ?E78.5 - Hyperlipidemia, unspecified (ICD-10) Obstructive sleep apnea syndrome ?G47.33 - Obstructive sleep apnea (adult) (pediatric) (ICD-10) Morbid obesity with BMI of 40.0-44.9, adult ?E66.01 - Morbid (severe) obesity due to excess calories (ICD-10) ?Z68.41 - Body mass index [BMI] 40.0-44.9, adult (ICD-10) Alcohol dependence ?F10.20 - Alcohol dependence, uncomplicated (ICD-10) Surgical History (Updated 01/11/24 @ 18:54 by Israel Quinn MD) S/P total left hip arthroplasty ?Z96.642 - Presence of left artificial hip joint (ICD-10) S/P total right hip arthroplasty (01/29/22) ?Z96.641 - Presence of right artificial hip joint (ICD-10) Status post vasectomy ?Z98.52 - Vasectomy status (ICD-10) Social History (Updated 01/11/24 @ 18:56 by Israel Quinn MD) Narrative: He lives with his in [place]. He has 3 steps to get into his house. He can live on the main level where he plans to sleep in a recliner in his living room. He did this for a month and half after his right hip replacement surgery. No longer smoking or drinking alcohol. 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 Code status is full. What is your current living situation?: I presently have a place to live Problems where you live: no known problems In the past 12 months, utilities in danger of being shut off: no In past 12 months, lack of transportation kept you from medical appts, meetings, work, or getting things needed for daily living: no In the past 12 mos, have been you worried that your food would run out before you had money to buy more?: never true In the past 12 mos, the food you bought just didn't last and you didn't have money to buy more?: never true Smoking Status: Never smoker Do you use any of these nicotine containing products: None Second hand tobacco smoke exposure: No How often do you have a drink containing alcohol: never How often do you have six or more drinks on one occasion: Never AUDIT-C Alcohol total score: 0 Non-prescribed substance use: denies use Caffeine: Yes How often does anyone, including family, friends and others, physically hurt you : never How often does anyone, including family, friends and others, insult or talk down to you: never How often does anyone, including family, friends and others, threaten you with harm: never How often does anyone, including family, friends and others, scream or curse at you: never Little interest or pleasure in doing things: nearly every day Feeling down, depressed, or hopeless: not at all service: No Meds Home Medications and Allergies Home Medications ?Medication ?Instructions ?Recorded ?Confirmed ?Type acetaminophen 650 mg 650 mg PO Q8H 03/10/22 01/11/24 History tablet,extended release multivitamin (Multiple Vitamins 1 tab PO QDAY 03/10/22 01/11/24 History tablet) omeprazole 20 mg tablet,delayed 20 mg PO QDAY 05/10/23 01/11/24 History release ferrous gluconate 236 mg (27 mg 236 mg PO QDAY 12/20/23 01/11/24 History iron) tablet Allergies Allergy/AdvReac Type Severity Reaction Status Date / Time No Known Allergies Allergy Verified 01/11/24 09:07 Exam Narrative: Exam Narrative: He is alert and appears in no distress. He gives his own history. Eyes normal. Oropharynx with very small airway. Neck is supple without mass or adenopathy. No stridor. Respirations are clear to auscultation. Breathing unlabored. Cardiovascular: S1, S2, relatively regular tachycardia. Distant heart sounds Abdomen is soft without tenderness or mass. Left Hip incision with a bandage without bruising erythema or drainage. Distally he has intact pulses and strength in his feet and ankles. He reports bilateral diminished sensation consistent with his chronic peripheral neuropathy. Const: Vital Signs, click to edit/add: Vital Signs - 24 hr 01/11/24 09:15 01/11/24 10:18 01/11/24 10:20 Temperature 98.7 F Pulse Rate 90 82 80 Pulse Rate [Pulse Oximeter] Respiratory Rate 16 16 16 Blood Pressure 129/95 H 130/85 103/77 Blood Pressure [Le ft Arm] Pulse Oximetry 97 99 99 Oxygen Delivery Me thod Room Air Nasal Cannula Nasal Cannula Oxygen Flow Rate 2 2 Fraction of Inspir ed Oxygen 01/11/24 10:25 01/11/24 13:50 01/11/24 13:55 Temperature 97.1 F L Pulse Rate 80 54 L 53 L Pulse Rate [Pulse Oximeter] Respiratory Rate 16 16 16 Blood Pressure 108/75 109/64 116/64 Blood Pressure [Le ft Arm] Pulse Oximetry 99 96 99 Oxygen Delivery Me thod Nasal Cannula Non Rebreather Mas k Non Rebreather Mas k Oxygen Flow Rate 2 10 10 Fraction of Inspir ed Oxygen 100 100 01/11/24 14:00 01/11/24 14:05 01/11/24 14:10 Temperature Pulse Rate 55 L 52 L 56 L Pulse Rate [Pulse Oximeter] Respiratory Rate 16 16 16 Blood Pressure 111/99 H 86/54 L 82/60 L Blood Pressure [Le ft Arm] Pulse Oximetry 98 94 95 Oxygen Delivery Me thod Room Air Room Air Room Air Oxygen Flow Rate Fraction of Inspir ed Oxygen 01/11/24 14:15 01/11/24 14:20 01/11/24 14:25 Temperature Pulse Rate 55 L 51 L 59 L Pulse Rate [Pulse Oximeter] Respiratory Rate 16 16 16 Blood Pressure 85/54 L 106/52 L 85/48 L Blood Pressure [Le ft Arm] Pulse Oximetry 95 95 96 Oxygen Delivery Me thod Room Air Room Air Room Air Oxygen Flow Rate Fraction of Inspir ed Oxygen 01/11/24 14:30 01/11/24 14:35 01/11/24 14:40 Temperature Pulse Rate 61 89 90 Pulse Rate [Pulse Oximeter] Respiratory Rate 16 16 16 Blood Pressure 107/58 L 91/61 97/59 L Blood Pressure [Le ft Arm] Pulse Oximetry 97 97 96 Oxygen Delivery Me thod Room Air Room Air Room Air Oxygen Flow Rate Fraction of Inspir ed Oxygen 01/11/24 14:45 01/11/24 14:50 01/11/24 14:59 Temperature 97.1 F L 96.6 F L Pulse Rate 99 93 Pulse Rate [Pulse Oximeter] 102 H Respiratory Rate 16 16 22 Blood Pressure 92/59 L 92/47 L Blood Pressure [Le ft Arm] 104/71 Pulse Oximetry 97 93 96 Oxygen Delivery Me thod Room Air Room Air Room Air Oxygen Flow Rate Fraction of Inspir ed Oxygen 01/11/24 15:00 01/11/24 15:00 01/11/24 15:15 Temperature 96.6 F L 97.1 F L Pulse Rate 102 H 104 H Pulse Rate [Pulse Oximeter] Respiratory Rate 22 20 Blood Pressure 104/71 108/60 Blood Pressure [Le ft Arm] Pulse Oximetry 96 96 92 Oxygen Delivery Me thod Room Air Room Air Room Air Oxygen Flow Rate Fraction of Inspir ed Oxygen 01/11/24 15:28 01/11/24 15:30 01/11/24 15:45 Temperature 96.6 F L 97.3 F L 97.5 F L Pulse Rate 102 H 113 H 118 H Pulse Rate [Pulse Oximeter] Respiratory Rate 22 18 20 Blood Pressure 104/71 100/70 95/73 Blood Pressure [Le ft Arm] Pulse Oximetry 96 90 90 Oxygen Delivery Me thod Room Air Room Air Room Air Oxygen Flow Rate Fraction of Inspir ed Oxygen 01/11/24 16:00 01/11/24 16:30 01/11/24 17:00 Temperature 97.3 F L 97.1 F L 97.6 F Pulse Rate 122 H 122 H 120 H Pulse Rate [Pulse Oximeter] Respiratory Rate 18 18 18 Blood Pressure 103/77 106/83 101/64 Blood Pressure [Le ft Arm] Pulse Oximetry 90 87 L 85 L Oxygen Delivery Me thod Room Air Room Air CPAP Oxygen Flow Rate Fraction of Inspir ed Oxygen 01/11/24 17:39 01/11/24 18:00 01/11/24 18:04 Temperature 97.7 F Pulse Rate 100 104 H Pulse Rate [Pulse Oximeter] Respiratory Rate 18 Blood Pressure 110/81 Blood Pressure [Le ft Arm] Pulse Oximetry 93 97 Oxygen Delivery Me thod Nasal Cannula Nasal Cannula Oxygen Flow Rate 2 2 Fraction of Inspir ed Oxygen 01/11/24 18:41 Temperature Pulse Rate 77 Pulse Rate [Pulse Oximeter] Respiratory Rate Blood Pressure 113/73 Blood Pressure [Le ft Arm] Pulse Oximetry Oxygen Delivery Me thod Oxygen Flow Rate Fraction of Inspir ed Oxygen Documenting provider has reviewed patient's vital signs: yes Assessment and Plan Assessment and plan (1) S/P total left hip arthroplasty: Problem comment: Dr. Ansari, January 11 2024, no complications Status: Acute (2) Hypoxia: Problem comment: Postop hypoxia without dyspnea. Suspect this is related to chronic sleep apnea with sedation from surgery and pain control. Continue to monitor with oximetry. Favor CPAP over oxygen to manage. Status: Acute (3) Tachycardia: Problem comment: Appears mildly dry and volume depleted. Fluid bolus and monitor. Resume metoprolol for rate control Status: Acute (4) Hypotension: Problem comment: Likely due to volume loss at surgery. Fluid bolus and monitor. Hold blood pressure medicines except metoprolol. Status: Acute (5) Persistent atrial fibrillation: Problem comment: Resume Xarelto tomorrow and metoprolol tonight. Status: Acute (6) Morbid obesity with BMI of 40.0-44.9, adult: Status: Acute (7) Obstructive sleep apnea syndrome: Problem comment: On CPAP. Caution with opioids. Likely has severe sleep apnea. Status: Acute (8) Diabetic neuropathy: Status: Acute Plan Patient is admitted for evaluation and management of chronic medical problems postoperatively as well as therapy and pain management. Anticipate discharge to home tomorrow if doing well. Total time spent today is 55 minutes, 40 minutes in coordination of care discussing with patient and his ongoing management of hypoxia, sleep apnea, anticoagulation in the context of hip replacement surgery
--- NOTE | 2024-01-11 19:13 | PC.NURSE ---
End of shift: Assumed care of patient at 1500 when he arrived from PACU. He is A&O and afebrile. His anterior left hip dressing is C/D/I with active ice in place. Pedal pulses palpable. Pt has baseline neuropathy so he has numbness/tingling in bilateral feet and occasionally right hand. Pt has h/o A. Fib in which he takes Xarelto for baseline. Upon arrival to the floor, he was in A. Fib with a rate ranging from 100-135. IV metoprolol 5mg x1 dose given @ 1825 which brought HR down to 80s-90s. BP had been soft initially & he received a 500 mL bolus of LR. He has a 20G in right wrist which is infusing LR @ 75 mL/hr. Pt has his home CPAP along. His O2 dipped down to 83% with CPAP in place on RA. He was placed on 2L NC and he?s maintained > 95%. PRN oxycodone given @ 1820 for pain rating 4/10. ?
[2024-01-11] MEDS: ATORVASTATIN 10 MG TABLET 20 MG PO (22:08)
[2024-01-11] MEDS: GABAPENTIN 300 MG CAPSULE PO (22:09)
[2024-01-11] MEDS: SENNOSIDES 1 TAB TABLET 2 TAB PO (22:09)
[2024-01-11] MEDS: INSULIN ASPART 100 UNIT/ML SUBCUT (22:36)
[2024-01-11] MEDS: METFORMIN 1,000 MG TABLET 1000 MG PO (22:36)
[2024-01-11] MEDS: METOPROLOL SUCCINATE (XL) 50 MG TAB PO (22:43)
[2024-01-12] MEDS: CEFAZOLIN 3 GM in 0.9 % SODIUM CHLORIDE Mini-bag 100 ML IVPB (03:33)
[2024-01-12] MEDS: ACETAMINOPHEN 500 MG TABLET 1000 MG PO ×2 (03:34→10:32)
[2024-01-12] MEDS: OXYCODONE 5 MG TABLET PO ×2 (03:39→08:41)
[2024-01-12 03:41] VITALS: BP 108/83; PULSE 78; RESP 22; TEMP 36.7; O2SAT 97
--- NOTE | 2024-01-12 05:45 | PC.NURSE ---
[id number]: Patient talkative and pleasant. HR sandie at start of shift but remained 70-90 most of shift w/o PRN meds. Pain controlled with PRN Oxy and active ice. A1/walker/GB. Weaned off O2. Wears CPAP while sleeping. Eating and voiding.
[2024-01-12 06:24] LABS: HCO3 VBG 23 mmol/L (21-28); PCO2 VBG 47 mmHG (40-50); PO2 VBG 42.1 mmHG (25-47); pH VBG 7.309 (7.32-7.43)
[2024-01-12 06:28] LABS: Hematocrit 33.7 % (37.0-53.0); Hemoglobin* 10.9 gm/dL (13.5-17.5); Immature Granulocytes Abs Auto 0.03 K/uL (0.00-0.30); Immature Granulocytes Pct Auto 0.3 %; Lymphocytes Percent Auto 7.3 % (20-44); Mean Corpuscular HGB Conc 32 gm/dL (32-36); Mean Corpuscular Hemoglobin 31 pg (26-34); Mean Corpuscular Volume 97 fL (80-100); Monocytes Percent Auto 6.1 % (0.0-11.0); Neutrophils Percent Auto 86.3 % (42.0-72.0); Platelet Count* 217 K/uL (140-440); RDW Coefficient of Variation % 12.8 % (11.5-15.5); Red Blood Count 3.47 m/uL (4.30-5.90); White Blood Count* 9.73 K/uL (4.50-11.00)
[2024-01-12 06:31] LABS: Slide Review Reflex No
[2024-01-12 06:44] LABS: Potassium* 5.4 mmol/L (3.6-5.1); Sodium* 129 mmol/L (135-149)
[2024-01-12 06:47] LABS: Blood Urea Nitrogen* 39 mg/dL (7-30); Est. Creatinine Clearance* 40.26; Estimated Glomerular Filt Rate 37 ml/min
[2024-01-12 07:00] VITALS: BP 129/84; PULSE 84; PULSE 85; RESP 20; RESP 22; TEMP 36.7; O2SAT 94
--- NOTE | 2024-01-12 08:33 | PM.ORPN ---
Subjective Subjective Time Seen by Provider: 08:33 Date Seen: 01/12/24 Principal diagnosis: Status post left hip replacement Interval history: Onel is comfortable this morning. Ortho Exam Narrative Exam Narrative: Alert and oriented x3. Patient is in no acute distress. Converses without labored breathing. Hearing is grossly intact. Ambulates with a walker. Examination of the left hip shows dressing is intact. Soft tissue edema is mild to moderate. No erythema or warmth or sign of infection. CMS intact left lower extremity. Drop foot right lower extremity. Bilateral calves are soft and nontender. Const Vital Signs, click to edit/add: Vital Signs - 24 hr 01/11/24 09:15 01/11/24 10:18 01/11/24 10:20 Temperature 98.7 F Pulse Rate 90 82 80 Pulse Rate [Pulse Oximeter] Respiratory Rate 16 16 16 Blood Pressure 129/95 H 130/85 103/77 Blood Pressure [Left Arm] Pulse Oximetry 97 99 99 Oxygen Delivery Method Room Air Nasal Cannula Nasal Cannula Oxygen Flow Rate 2 2 Fraction of Inspired Oxygen 01/11/24 10:25 01/11/24 13:50 01/11/24 13:55 Temperature 97.1 F L Pulse Rate 80 54 L 53 L Pulse Rate [Pulse Oximeter] Respiratory Rate 16 16 16 Blood Pressure 108/75 109/64 116/64 Blood Pressure [Left Arm] Pulse Oximetry 99 96 99 Oxygen Delivery Method Nasal Cannula Non Rebreather Mask Non Rebreather Mask Oxygen Flow Rate 2 10 10 Fraction of Inspired Oxygen 100 100 01/11/24 14:00 01/11/24 14:05 01/11/24 14:10 Temperature Pulse Rate 55 L 52 L 56 L Pulse Rate [Pulse Oximeter] Respiratory Rate 16 16 16 Blood Pressure 111/99 H 86/54 L 82/60 L Blood Pressure [Left Arm] Pulse Oximetry 98 94 95 Oxygen Delivery Method Room Air Room Air Room Air Oxygen Flow Rate Fraction of Inspired Oxygen 01/11/24 14:15 01/11/24 14:20 01/11/24 14:25 Temperature Pulse Rate 55 L 51 L 59 L Pulse Rate [Pulse Oximeter] Respiratory Rate 16 16 16 Blood Pressure 85/54 L 106/52 L 85/48 L Blood Pressure [Left Arm] Pulse Oximetry 95 95 96 Oxygen Delivery Method Room Air Room Air Room Air Oxygen Flow Rate Fraction of Inspired Oxygen 01/11/24 14:30 01/11/24 14:35 01/11/24 14:40 Temperature Pulse Rate 61 89 90 Pulse Rate [Pulse Oximeter] Respiratory Rate 16 16 16 Blood Pressure 107/58 L 91/61 97/59 L Blood Pressure [Left Arm] Pulse Oximetry 97 97 96 Oxygen Delivery Method Room Air Room Air Room Air Oxygen Flow Rate Fraction of Inspired Oxygen 01/11/24 14:45 01/11/24 14:50 01/11/24 14:59 Temperature 97.1 F L 96.6 F L Pulse Rate 99 93 Pulse Rate [Pulse Oximeter] 102 H Respiratory Rate 16 16 22 Blood Pressure 92/59 L 92/47 L Blood Pressure [Left Arm] 104/71 Pulse Oximetry 97 93 96 Oxygen Delivery Method Room Air Room Air Room Air Oxygen Flow Rate Fraction of Inspired Oxygen 01/11/24 15:00 01/11/24 15:00 01/11/24 15:15 Temperature 96.6 F L 97.1 F L Pulse Rate 102 H 104 H Pulse Rate [Pulse Oximeter] Respiratory Rate 22 20 Blood Pressure 104/71 108/60 Blood Pressure [Left Arm] Pulse Oximetry 96 96 92 Oxygen Delivery Method Room Air Room Air Room Air Oxygen Flow Rate Fraction of Inspired Oxygen 01/11/24 15:28 01/11/24 15:30 01/11/24 15:45 Temperature 96.6 F L 97.3 F L 97.5 F L Pulse Rate 102 H 113 H 118 H Pulse Rate [Pulse Oximeter] Respiratory Rate 22 18 20 Blood Pressure 104/71 100/70 95/73 Blood Pressure [Left Arm] Pulse Oximetry 96 90 90 Oxygen Delivery Method Room Air Room Air Room Air Oxygen Flow Rate Fraction of Inspired Oxygen 01/11/24 16:00 01/11/24 16:30 01/11/24 17:00 Temperature 97.3 F L 97.1 F L 97.6 F Pulse Rate 122 H 122 H 120 H Pulse Rate [Pulse Oximeter] Respiratory Rate 18 18 18 Blood Pressure 103/77 106/83 101/64 Blood Pressure [Left Arm] Pulse Oximetry 90 87 L 85 L Oxygen Delivery Method Room Air Room Air CPAP Oxygen Flow Rate Fraction of Inspired Oxygen 01/11/24 17:39 01/11/24 18:00 01/11/24 18:04 Temperature 97.7 F Pulse Rate 100 104 H Pulse Rate [Pulse Oximeter] Respiratory Rate 18 Blood Pressure 110/81 Blood Pressure [Left Arm] Pulse Oximetry 93 97 Oxygen Delivery Method Nasal Cannula Nasal Cannula Oxygen Flow Rate 2 2 Fraction of Inspired Oxygen 01/11/24 18:41 01/11/24 19:00 01/11/24 20:00 Temperature 97.6 F Pulse Rate 77 74 59 L Pulse Rate [Pulse Oximeter] Respiratory Rate 18 20 Blood Pressure 113/73 110/72 91/65 Blood Pressure [Left Arm] Pulse Oximetry 97 97 Oxygen Delivery Method Nasal Cannula Nasal Cannula Oxygen Flow Rate 2 Fraction of Inspired Oxygen 01/11/24 21:00 01/11/24 22:53 01/11/24 23:00 Temperature 97.6 F 97.5 F L Pulse Rate 63 95 Pulse Rate [Pulse Oximeter] 85 Respiratory Rate 22 22 Blood Pressure 101/68 Blood Pressure [Left Arm] 115/79 Pulse Oximetry 96 97 Oxygen Delivery Method Nasal Cannula CPAP Oxygen Flow Rate 2 Fraction of Inspired Oxygen 01/11/24 23:00 01/11/24 23:00 01/12/24 03:41 Temperature 98.1 F Pulse Rate Pulse Rate [Pulse Oximeter] 78 Respiratory Rate 22 22 Blood Pressure Blood Pressure [Left Arm] 108/83 Pulse Oximetry 97 97 97 Oxygen Delivery Method CPAP Room Air Oxygen Flow Rate Fraction of Inspired Oxygen 01/12/24 07:00 01/12/24 07:00 01/12/24 07:00 Temperature Pulse Rate Pulse Rate [Pulse Oximeter] 85 Respiratory Rate 20 22 Blood Pressure Blood Pressure [Left Arm] Pulse Oximetry 94 94 Oxygen Delivery Method Room Air Oxygen Flow Rate 2 Fraction of Inspired Oxygen 100 01/12/24 07:00 Temperature 98.1 F Pulse Rate Pulse Rate [Pulse Oximeter] 85 Respiratory Rate 20 Blood Pressure Blood Pressure [Left Arm] 129/84 Pulse Oximetry 94 Oxygen Delivery Method Room Air Oxygen Flow Rate 2 Fraction of Inspired Oxygen 100 Assessment and Plan Assessment and plan (1) S/P total left hip arthroplasty: Problem details: Dr. Ansari, January 11 2024 Status: Acute Assessment and Plan: Plan for discharge is today, and when they meets discharge criteria. DVT prophylaxis upon discharge, patient takes Xarelto daily. Remove dressing 1 week. Observe wound and phone Orthopedics with any questions or concerns Use Ice on operative hip unrestricted. Return to clinic in 1 week with PA for a wound check Return to clinic in 6 weeks with surgeon Minimize narcotic use. Wean off and discontinue soon as possible. Activities as tolerated. No strenuous activity. Attend outpt PT
[2024-01-12] MEDS: GABAPENTIN 300 MG CAPSULE PO (08:40)
[2024-01-12] MEDS: FERROUS SULFATE 325 MG TABLET 236 MG PO (08:40)
[2024-01-12] MEDS: SENNOSIDES 1 TAB TABLET 2 TAB PO (08:40)
[2024-01-12] MEDS: METFORMIN 500 MG TABLET PO (08:41)
[2024-01-12] MEDS: METOPROLOL SUCCINATE (XL) 50 MG TAB PO (08:41)
[2024-01-12] MEDS: RIVAROXABAN 10 MG TABLET 20 MG PO (08:41)
--- NOTE | 2024-01-12 11:07 | PC.NURSE ---
Discharge: Patient alert and oriented x4, pleasant and cooperative. PRN oxy administered prior to therapy. VSS, on RA. tolerating a reg. diet. Patient ambulating to BR and up to chair for meals. Tolerating activity well. Patient denies, N/V/SOB, afebrile this shift. Patients dressing to left hip, C/D/I. Discharged to home today at 1035 accompanied by spouse. Patient's IV removed intact. Patient signed belongings sheet and discharge paperwork. Patient verbalized understanding of intructions.
== END 2024-01-12 10:35 | disposition home or self-care (01) ==
LOC: OR 08:51 → MEDSURG 08:53
PROVIDERS: Family Medicine; PCP Family Medicine; Visit Provider Orthopaedic Surgery
PROC: (CPT 27130; principal; 2024-01-11 10:15)
DX: M16.12 Unilateral primary osteoarthritis, left hip (principal); G89.18 Other acute postprocedural pain; Z68.41 Body mass index [BMI] 40.0-44.9, adult; G47.33 Obstructive sleep apnea (adult) (pediatric); I48.19 Other persistent atrial fibrillation; E11.40 Type 2 diabetes mellitus with diabetic neuropathy, unspecified; E66.01 Morbid (severe) obesity due to excess calories; I95.9 Hypotension, unspecified; R09.02 Hypoxemia
CPT/HCPCS: 27130; 01214; 36415; 51798; 64450; 73501; 76942; 82565; 82803; 82962; 84132; 84295; 84520; 85025; 86850; 86900; 86901; 94761; 97110; 97116; 97161; 97165; 97530; 97535; A9270; C1776; J0330; J0690; J1100; J1170; J2250; J2371; J2405; J2704; J3010; J3490; J7120

== ENCOUNTER 2024-02-23 14:15 | Outpatient (RCR) | payer BC, SELFPAY | END 2024-05-31 14:20 | disposition home or self-care (01) | PROVIDERS: PCP Family Medicine; Visit Provider Orthopaedic Surgery | DX: M16.12 Unilateral primary osteoarthritis, left hip (principal); Z96.642 Presence of left artificial hip joint; M25.552 Pain in left hip; R26.2 Difficulty in walking, not elsewhere classified; M62.81 Muscle weakness (generalized); Z51.89 Encounter for other specified aftercare | CPT/HCPCS: 97110; 97140; 97161; 97164; 97535 ==

== ENCOUNTER 2024-03-09 09:36 | Outpatient (CLI) | payer BC, SELFPAY ==
--- NOTE | 2024-03-09 10:00 | CRLHL7_ITS ---
For Patients: As a result of the Century Cures Act, medical imaging exams and procedure reports are released immediately into your electronic medical record. You may view this report before your referring provider. If you have questions, please contact your health care provider. Indication: UNILATERAL INGUINAL HERNIA, WITHOUT OBSTRUCTION Technique: Noncontrast CT abdomen and pelvis Please note that all CT scans at this facility use dose modulation, iterative reconstruction, and/or weight-based dosing when appropriate to reduce radiation dose to as low as reasonably achievable. Comparison: 12/27/2014 Findings: Dependent atelectasis in both lung bases. No pleural effusion. Diffuse low-attenuation of the hepatic parenchyma, increased compared to the prior study. No intrahepatic mass. Spleen is normal. Small incidental splenule. Normal adrenal glands. The kidneys are within normal limits. Normal pancreas. Normal gallbladder. No aneurysm. Bladder unremarkable. No bowel obstruction, free air, free fluid or adenopathy. No abscess. Appendix is within normal limits. There is a fat filled inguinal hernia extending over a length of 18.3 cm extending into the left hemiscrotum. The hernia measures 6.8 x 7.5 cm in transverse dimensions. This has increased compared to the prior exam. Bilateral hip replacement hardware noted. Mild degenerative facet arthropathy L4-5 and L5-S1. No vertebral body compression fracture. Impression: Large fat filled left inguinal hernia measuring approximately 6.8 x 7.5 x 18.3 cm. No bowel involvement or inflammatory changes. Please note that all CT scans at this facility use dose modulation, iterative reconstruction, and/or weight-based dosing when appropriate to reduce radiation dose to as low as reasonably achievable. Dictated by Michel Peraza MD @ 03/10/2024 12:32:50 PM (Electronically Signed)
[2024-03-09 10:18] LABS: Creatinine* 1.8 mg/dL (0.5-1.5); Estimated Glomerular Filt Rate 42 ml/min
== END 2024-03-09 09:37 | disposition home or self-care (01) ==
LOC: CT 09:37
PROVIDERS: PCP Family Medicine; Visit Provider Surgery
DX: K40.90 Unilateral inguinal hernia, without obstruction or gangrene, not specified as recurrent (principal)
CPT/HCPCS: 36415; 74177; 82565; Q9967

== ENCOUNTER 2024-03-14 13:28 | Outpatient (CLI) | payer BC, SELFPAY | END 2024-03-14 13:29 | disposition home or self-care (01) | LOC: WOUND 13:28 | PROVIDERS: PCP Family Medicine; Visit Provider Physician Assistant Surgical | DX: T81.31XA Disruption of external operation (surgical) wound, not elsewhere classified, initial encounter (principal); E11.8 Type 2 diabetes mellitus with unspecified complications; Z79.84 Long term (current) use of oral hypoglycemic drugs | CPT/HCPCS: 11042; G0463 ==

== ENCOUNTER 2024-03-21 12:41 | Outpatient (CLI) | payer BC, SELFPAY | END 2024-03-21 12:42 | disposition home or self-care (01) | LOC: WOUND 12:41 | PROVIDERS: PCP Family Medicine; Visit Provider Nurse Practitioner Family | DX: T81.31XA Disruption of external operation (surgical) wound, not elsewhere classified, initial encounter (principal) | CPT/HCPCS: 11042 ==

== ENCOUNTER 2024-03-28 12:53 | Outpatient (CLI) | payer BC, SELFPAY | END 2024-03-28 12:54 | disposition home or self-care (01) | LOC: WOUND 12:53 | PROVIDERS: PCP Family Medicine; Visit Provider Nurse Practitioner Family | DX: T81.31XA Disruption of external operation (surgical) wound, not elsewhere classified, initial encounter (principal); I87.2 Venous insufficiency (chronic) (peripheral); E11.8 Type 2 diabetes mellitus with unspecified complications | CPT/HCPCS: 97597 ==

== ENCOUNTER 2024-04-11 12:46 | Outpatient (CLI) | payer BC, SELFPAY | END 2024-04-11 12:47 | disposition home or self-care (01) | LOC: WOUND 12:47 | PROVIDERS: PCP Family Medicine; Visit Provider Nurse Practitioner Family | DX: T81.31XD Disruption of external operation (surgical) wound, not elsewhere classified, subsequent encounter (principal); E11.8 Type 2 diabetes mellitus with unspecified complications; Z79.84 Long term (current) use of oral hypoglycemic drugs | CPT/HCPCS: G0463 ==

== ENCOUNTER 2024-05-01 06:06 | Day surgery (SDC) | payer BC, SELFPAY ==
[2024-05-01] VITALS (18 sets, daily range): BP systolic 86–149; BP diastolic 51–94; PULSE 85–99; RESP 12–20; TEMP 36.6–37.4; O2SAT 92–100; BMI 43.7
[2024-05-01] MEDS: SODIUM CHLORIDE 0.9 % (FLUSH) 10 ML SYRINGE IVF (06:30)
[2024-05-01] MEDS: LACTATED RINGERS 1000 ML 1,000 ML 100 ML IV (06:30)
--- NOTE | 2024-05-01 07:25 | W.PM.H&PU ---
History & Physical Update History & Physical Update H&P Reviewed and patient assessed: No changes noted
--- NOTE | 2024-05-01 07:26 | P.GSOP_ITS ---
Operative Note Date of procedure: 05/01/24 Pre-op diagnosis: 1. Symptomatic left inguinal hernia. Post-op diagnosis: 1. Direct left inguinal hernia with incarcerated preperitoneal fat. Type of Procedure: 1. Open left inguinal hernia repair with mesh plug and mesh onlay. Indications: 63-year-old male was seen in clinic for evaluation of a left inguinal bulge. Patient had a known history of left inguinal hernia. Since this was not symptomatic, he did not proceed with surgical repair. Over time his bulge increased in size. He started to experience pain with walking, sitting, and being active. He had a recent hip replacement surgery. On clinical exam his left hemiscrotum was enlarged and was difficult to tell if there was presence of left hydrocele or if it was incarcerated left inguinal hernia. Patient also had a few islands of open skin at his hip replacement incision. Patient underwent an abdominal CT scan preoperatively that showed fat containing left inguinal hernia. Patient's left hip replacement incision has healed and he decided to proceed with left inguinal hernia repair. Given patient's clinical history and his CT findings, an open left inguinal hernia repair was recommended. The procedure was discussed in detail. The risks associated procedure including infection, bleeding, hernia recurrence, nerve pain, and other complications were all discussed with the patient, and he agreed to proceed. Patient held his Xarelto for at least 3 days preoperatively. Procedure Description: After discussing the risks and benefits of the procedure, the patient signed informed consent.? The operative site was marked and the patient was brought to the operating room and placed on the operating table in supine position.? Care was taken to pad the patient's pressure points.?? The patient was then intubated by anesthesia.?? The operative site was then prepped and draped in the usual sterile fashion.? A time-out was then performed. Surgical site was prepped and draped in sterile fashion. Site of the incision was marked with a marking pen and local anesthetic was injected. An oblique incision was made just above and medial to the left inguinal ligament. Subcutaneous tissue was dissected to external obliques. Small incision was made through the external oblique aponeurosis with scalpel. I then used Metzenbaum scissors to dissect under external obliques and extend my incision. Ksenia clamps were placed on the edges of external oblique exposing the inguinal floor. The hernia was fatty and was occupying the left hemiscrotum. I bluntly dissected subcutaneous tissues in order to place Sherwood drain around the cord structures. With blunt finger dissection and with cautery dissection I was finally able to reduce the hernia. The hernia was indirect and contained large amount of preperitoneal fat. The hernia sac was dissected from the spermatic co rd with cautery. Cremasteric fibers were peeled off and dissected off the hernia sac and cord structures. The left Ilioinguinal nerve was identified and was going through the plain of dissection. The nerve was clamped with Ksenia clamps proximally and distally, and a 3 cm segment of it was excised. Free ends were tied with Vicryl sutures. This was not sent to pathology. I further mobilized hernia sac of the surrounding structures. The preperitoneal fat and the hernia sac were then reduced into the preperitoneal space. A sponge stick was used to hold the hernia sac in place. Throughout the case hemostasis was achieved with cautery and Vicryl ties. The base of the spermatic cord was examined, and no evidence of indirect hernia was seen. A Bard mesh plug was inserted through the internal ring and secured to the adjacent tissues with interrupted 0-0 Neurolon sutures. A Bard mesh onlay was also used for hernia repair. The mesh onlay was sutured in place with interrupted 0-0 Neurolon sutures to the conjoint tendon medially and shelving edge laterally, pubic tubercle inferiorly. Simple interrupted sutures were placed using 0-0 Neurolon at the base of internal inguinal ring making it only large enough to fit a tip of one finger through. Spermatic cord was placed back into scrotum. Brigette drain was removed. External oblique aponeurosis was closed with a running 3-0 Vicryl. Additional local anesthetic was injected into subcutaneous tissues. Darron's fascia and subcutaneous tissue was re- approximated with interrupted Vicryl stitches. Skin incision was closed with 4-0 Monocryl subcuticular stitch. Steri strips and sterile dressing were applied over incision. All counts were correct at the end of the case. Patient tolerated this procedure well and was transferred to PACU in stable condition. Findings: A large indirect inguinal hernia containing preperitoneal fat. Anesthesia: GETA Surgeon: Yobany Avendaño MD Estimated blood loss (mL): 5 Condition: stable Disposition: PACU
[2024-05-01] MEDS: CEFAZOLIN 1 GM inj 3 GM IVP (07:46)
[2024-05-01] MEDS: BUPIVACAINE 0.25% 30 ML 10 ML INJECTION (07:52)
--- NOTE | 2024-05-01 08:58 | SUR.OPER ---
PATIENT QUESTIONS ANSWERED SATISFACTORILY PREOPERATIVELY. PATIENT BROUGHT TO OR #4 PER CART. Patient positioned supine on OR #4 bed. The perioperative team supported arms bilaterally on arm boards. Final approval of positioning by surgeon.
--- NOTE | 2024-05-01 09:03 | SUR.OPER ---
SURGEON DECLINES OFFER TO SEND EXCISED TISSUES TO PATHOLOGY.
--- NOTE | 2024-05-01 10:04 | W.ANESCHARGE ---
Anesthesia Charges Start Date/Time Anesthesia Start Date: 05/01/24 Anesthesia Start Time: 07:28 Stop Date/Time Anesthesia Stop Date: 05/01/24 Anesthesia Stop Time: 09:52
[2024-05-01] MEDS: HYDROCODONE-ACETAMIN 5-325 MG 1 TAB PO (10:53)
[2024-05-01] MEDS: LACTATED RINGERS 1000 ML 1,000 ML 50 ML IV (10:54)
== END 2024-05-01 12:10 | disposition home or self-care (01) ==
PROVIDERS: PCP Family Medicine; Visit Provider Surgery
PROC: (CPT 49507; principal; 2024-05-01 07:30)
DX: K40.30 Unilateral inguinal hernia, with obstruction, without gangrene, not specified as recurrent (principal); E11.42 Type 2 diabetes mellitus with diabetic polyneuropathy; E66.01 Morbid (severe) obesity due to excess calories; Z68.41 Body mass index [BMI] 40.0-44.9, adult; I48.19 Other persistent atrial fibrillation; G47.33 Obstructive sleep apnea (adult) (pediatric); I10 Essential (primary) hypertension
CPT/HCPCS: 49507; 00830; 82962; A9270; C1781; J0665; J0690; J2371; J2405; J2704; J3010; J3490; J7120

== ENCOUNTER 2024-05-17 09:05 | Outpatient (CLI) | payer BC, SELFPAY ==
--- NOTE | 2024-05-17 09:30 | CRLHL7_ITS ---
For Patients: As a result of the Century Cures Act, medical imaging exams and procedure reports are released immediately into your electronic medical record. You may view this report before your referring provider. If you have questions, please contact your health care provider. Indication: Swelling status post left hernia repair. Technique: Ultrasound of the scrotum and contents. Sonographic mckenzie-scale images were obtained with spectral and color Doppler waveform and spectral waveform analysis of the testicles. Comparison: None. Findings: Bother testicles are normal in size and echotexture. No masses. No suspicious calcifications. Arterial and venous color Doppler blood flow and spectral waveforms are present in both testicles. Epididymis: Unremarkable bilaterally. Normal blood flow. Other: Bilateral hydroceles. No sign of varicocele. Thickened soft tissue in the left hemiscrotum. Impression: Soft tissue thickening in the left hemiscrotum is presumably postoperative in nature. There are bilateral hydroceles. Remainder of the exam is unremarkable. Dictated by Franklyn Lees MD @ 05/19/2024 9:01:38 AM (Electronically Signed)
== END 2024-05-17 09:06 | disposition home or self-care (01) ==
LOC: US 09:06
PROVIDERS: PCP Family Medicine; Visit Provider Surgery
DX: N50.89 Other specified disorders of the male genital organs (principal); N43.3 Hydrocele, unspecified; Z48.89 Encounter for other specified surgical aftercare
CPT/HCPCS: 76870; 93976

== ENCOUNTER 2024-09-06 11:45 | Outpatient (CLI) | payer BC, SELFPAY | END 2024-09-06 11:46 | disposition home or self-care (01) | PROVIDERS: PCP Family Medicine; Visit Provider Family Medicine | DX: R53.83 Other fatigue (principal); I10 Essential (primary) hypertension; E78.00 Pure hypercholesterolemia, unspecified; E13.9 Other specified diabetes mellitus without complications; E66.01 Morbid (severe) obesity due to excess calories; Z12.5 Encounter for screening for malignant neoplasm of prostate | CPT/HCPCS: 80061; 84443; G0103 ==

== ENCOUNTER 2025-01-18 15:06 | Emergency (ER) | payer BC, SELFPAY ==
[2025-01-18] VITALS (9 sets, daily range): BP systolic 116–137; BP diastolic 66–74; PULSE 38–53; RESP 13–24; TEMP 36.5; O2SAT 92–96; BMI 39.5
--- OUTSIDE RECORDS SUMMARY | 2025-01-18 15:09 | XMS_ITS | Clinical Summary ---
Author Organization [facility] Address [address] [place] [id number] Care Team Providers Care Ivory Carver Name Role Phone Hipolito Delgadillo MD Primary Care Provider Allergies No known active allergies Medications atorvastatin (LIPITOR) 20 mg tablet Take 20 mg by mouth at bedtime. 2 Active Tylenol Extra Strength 500 mg tablet TAKE 1 TO 2 TABLETS BY MOUTH EVERY 6 HOURS NEEDED FOR PAIN 2 Active chlorthalidone (HYGROTON) 25 mg tablet TAKE 1 TABLET (25 MG) BY MOUTH ONCE DAILY 2 Active gabapentin (NEURONTIN) 100 mg capsule TAKE 2 CAPSULES BY MOUTH EVERY DAY AT BEDTIME 2 Active lisinopriL (PRINIVIL; ZESTRIL) 40 mg tablet Take 40 mg by mouth once daily. 2 Active metFORMIN (GLUCOPHAGE) 500 mg tablet TAKE 1 TABLET BY MOUTH WITH BREAKFAST AND 2 TABLETS WITH SUPPER (TAKE WITH MEALS) 2 Active metoprolol succinate (TOPROL XL) 100 mg Sustained-Relea se tablet Take 100 mg by mouth once daily. 2 Active Xarelto 20 mg tablet Take 20 mg by mouth once daily with a meal. 2 Active Active Problems Problem Noted Date Diagnosed Date Ascending aorta dilatation 12/12/2021 EDDIE (obstructive sleep apnea) 03/08/2020 SOB (shortness of breath) 03/08/2020 Physical deconditioning 03/08/2020 HTN (hypertension) 03/08/2020 PAF (paroxysmal atrial fibrillation) 03/08/2020 Morbid obesity due to excess calories 03/08/2020 Social History Tobacco Use Types Packs/Day Years Used Date Smoking Tobacco: Former Smokeless Tobacco: Never Social Connections Answer Date Recorded Frequency of Communication with Friends and Fami ly Not on file 08/02/2021 Financial Resource Strain Answer Date R ecorded Difficulty of Paying Living Expenses Not on file 08/02/2021 Difficulty of Paying Living Expenses Not on file 08/02/2021 Sex and Gender Information Value Date Recorded Sex Assigned at Not on file Legal Sex Male 6:27 AM [employer] Gender Identity Not on file Sexual Orientation Not on file Obstetrics History Last Filed Vital Signs Vital Sign Reading Time Taken Comments Blood Pressure 132/85 05/04/2022 8:40 AM CDT Pulse 98 05/04/2022 8:40 AM CDT Temperature 36.8 C (98.3 F) 05/04/2022 8:40 AM CDT Respiratory Rate - - Oxygen Saturation 98% 05/04/2022 8:40 AM CDT Inhaled Oxygen Concentration - - Weight 134.4 kg (296 lb 6.4 oz) 05/04/2022 8:40 AM CDT Height 182 cm (5' 11.65) 11/15/2020 9:56 AM CDT Body Mass Index 40.59 11/15/2020 9:56 AM CDT Plan of Treatment Health Maintenance Due Date Last Done Comments Tdap 10/16/1971 Depression screening for age 12+ 1972 HIV for age 15-65 10/16/1975 Hepatitis C screening for ag e 18-79 1978 Pneumococcal series for age 50+ (1 of 2 - PCV) 10/16/1979 Tetanus booster 1980 Colonoscopy through age 75 2005 Lipids for age 45-75 2005 Zoster (shingles) series for age 50+ (1 of 2) 2010 RSV vaccine for adults or (1 - Risk 60-74 years 1-dose series) 2020 BMI (ht and wt on same day) for age 18+ 11/15/2021 11/15/2020 COVID-19 vaccine series ( season) 2024 11/09/2020, 10/19/2020 Influenza Vaccine (Season Ended) 2025 Hepatitis B series for 19+ Aged Out N o longer eligible based on patient's age to complete this topic Insurance [facility] * Guarantor: [employer] Account Type Relation to Patient Date of Phone Billing Address [facility] [employer] [phone] (Work) [employer]N [employer] [address] [place] [address] Care Teams Ivory Carver Relationship Specialty Start Date End Date Hipolito Delgadillo MD PCP - General Family Practice 03/11/20
--- NOTE | 2025-01-18 15:55 | ED_ITS ---
HPI - General Adult General Time Seen by Provider: 15:56 Date Seen: 01/18/25 Chief complaint: Urogenital Problems, Male Stated complaint: unable to urinate, exhausted Time Seen by Provider: 01/18/25 15:34 Source: patient and RN notes reviewed Mode of arrival: ambulatory Limitations: no limitations History of Present Illness HPI narrative: This 64-year-old male is here coming in by wheelchair with exhaustion, weakness, not feeling well. Notes he really has not been urinating for 4 days, no dysuria, no fevers or chills. He was started on some glue tied about 4 months ago, sounds as if he may have had an increased dose. He notes he has had diminished appetite, when he does eat he just feels pressure and abdominal fullness. He has had a little diarrhea for 2 days, no blood. He has felt short of breath with activity, feels he gets winded with any exertion. He is just feeling extremely weak and exhausted. His legs feel weak, is having hard time walking and standing because of his weakness. No back pain. He is in chronic atrial fibrillation per his report, is anticoagulated with Xarelto. Related Data Home Medications ?Medication ?Instructions ?Recorded ?Confirmed acetaminophen 650 mg 650 mg PO Q8H 03/10/2201/10 tablet,extended release multivitamin (Multiple Vitamins 1 tab PO QDAY 03/10/22 01/10/25 tablet) omeprazole 20 mg tablet,delayed 20 mg PO QDAY 05/10/23 01/10/25 release ferrous gluconate 236 mg (27 mg 236 mg PO QDAY 4 01/10/25 iron) tablet Previous Rx's ?Medication ?Instructions ?Recorded sennosides 8.6 mg tablet (Senna 17.2 mg (2 x 8.6 mg) P O BID PRN 01/11/24 Lax) constipation #100 tabs atorvastatin 20 mg tablet 20 mg PO HS #90 tabs 4 chlorthalidone 25 mg tablet See Rx Instructions .Route 04/19/24 .COMPLEX #90 tabs lisinopril 40 mg tablet 40 mg PO DAILY #90 tabs 04/02 03/25 metformin 500 mg tablet See Rx Instructions .Route 0 04/19/24 .COMPLEX #270 tabs metoprolol succinate 100 mg 100 mg PO DAILY #90 tabs 0 04/19/24 tablet,extended release 24 hr rivaroxaban 20 mg tablet (Xarelto) See Rx Instructions .Route 04/19/24 Held on 05/01/24. .COMPLEX #90 tabs Instructions: Resume on 05/02/24. gabapentin 300 mg capsule See Rx Instructions PO .ud # 120 06/21/24 caps semaglutide (weight loss) 0.25 0.25 mg (0.5 mL) subcut QWEEK #2 mL 09/06/25 mg/0.5 mL subcutaneous pen injector (Wegovy) semaglutide (weight loss) 0.5 0.5 mg (0.5 mL) subcut Q WEEK #2 mL 10/23/25 mg/0.5 mL subcutaneous pen injector (Wegovy) semaglutide (weight loss) 1 mg/0.5 1 mg (0.5 mL) subcu t Q7D #2 mL 11/20/25 mL subcutaneous pen injector (Wegovy) semaglutide (weight loss) 1.7 1.7 mg (0.75 mL) subcut QWEEK #3 mL 12/18/25 mg/0.75 mL subcutaneous pen injector (Wegovy) semaglutide (weight loss) 2.4 2.4 mg (0.75 mL) subcut QWEEK #3 mL 01/15/25 mg/0.75 mL subcutaneous pen injector (Wegovy) Allergies Allergy/AdvReac Type Severity Reaction Status Date / Time No Known Allergies Allergy Verified 01/10/25 09:06 Review of Systems Status of ROS: Reports: 6 or more systems reviewed and unremarkable except as noted in History and below [facility] Medical History Atrial fibrillation ?I48.91 - Unspecified atrial fibrillation (ICD-10) Latent autoimmune diabetes in adults, managed as type 2 ?E13.9 - Other specified diabetes mellitus without complications (ICD-10) Hypertension ?I10 - Essential (primary) hypertension (ICD-10) Hyperlipidemia ?E78.5 - Hyperlipidemia, unspecified (ICD-10) Obstructive sleep apnea syndrome ?G47.33 - Obstructive sleep apnea (adult) (pediatric) (ICD-10) Atherosclerotic heart disease of [place] coronary artery with other forms of angina pectoris ?I25.118 - Atherosclerotic heart disease of [place] coronary artery with other forms of angina pectoris (ICD-10) Ascending aorta dilatation ?I77.810 - Thoracic aortic ectasia (ICD-10) Osteoarthritis of right knee ?M17.11 - Unilateral primary osteoarthritis, right knee (ICD-10) Right foot drop ?M21.371 - Foot drop, right foot (ICD-10) Peripheral arterial occlusive disease ?I77.9 - Disorder of arteries and arterioles, unspecified (ICD-10) History of alcohol dependence ?F10.21 - Alcohol dependence, in remission (ICD-10) Hypoxia ?R09.02 - Hypoxemia (ICD-10) Diabetic neuropathy ?E11.40 - Type 2 diabetes mellitus with diabetic neuropathy, unspecified (ICD-10) Morbid obesity with BMI of 40.0-44.9, adult ?E66.01 - Morbid (severe) obesity due to excess calories (ICD-10) ?Z68.41 - Body mass index [BMI] 40.0-44.9, adult (ICD-10) Surgical History S/P total left hip arthroplasty (01/11/24) ?Z96.642 - Presence of left artificial hip joint (ICD-10) S/P left inguinal hernia repair ?Z98.890 - Other specified postprocedural states (ICD-10) ?Z87.19 - Personal history of other diseases of the digestive system (ICD-10) S/P total right hip arthroplasty (01/29/22) ?Z96.641 - Presence of right artificial hip joint (ICD-10) Status post vasectomy ?Z98.52 - Vasectomy status (ICD-10) Social History Narrative: He lives with his in [place]. He has 3 steps to get into his house. He can live on the main level where he plans to sleep in a recliner in his living room. He did this for a month and half after his right hip replacement surgery. No longer smoking or drinking alcohol. 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 Code status is full. What is your current living situation?: I presently have a place to live Problems where you live: no known problems In the past 12 months, utilities in danger of being shut off: no In past 12 months, lack of transportation kept you from medical appts, meetings, work, or getting things needed for daily living: no In the past 12 mos, have been you worried that your food would run out before you had money to buy more?: never true In the past 12 mos, the food you bought just didn't last and you didn't have money to buy more?: never true Smoking Status: Never smoker Do you use any of these nicotine containing products: None Second hand tobacco smoke exposure: No How often do you have a drink containing alcohol: never How often do you have six or more drinks on one occasion: Never AUDIT-C Alcohol total score: 0 Non-prescribed substance use: denies use Caffeine: Yes How often does anyone, including family, friends and others, physically hurt you : never How often does anyone, including family, friends and others, insult or talk down to you: never How often does anyone, including family, friends and others, threaten you with harm: never How often does anyone, including family, friends and others, scream or curse at you: never service: No Exam Const: Vital Signs, click to edit/add: Vital Signs - 24 hr 01/18/25 15:24 01/18/25 16:00 01/18/25 16:10 Temperature 97.7 F Pulse Rate Pulse Rate [Pulse Oximeter] 46 L Respiratory Rate 18 16 Blood Pressure 137/66 Blood Pressure [Ri ght Upper Arm] 131/67 Pulse Oximetry 95 96 Oxygen Delivery Me thod Room Air 01/18/25 16:30 01/18/25 16:32 01/18/25 16:45 Temperature Pulse Rate 53 L 53 L 52 L Pulse Rate [Pulse Oximeter] Respiratory Rate 15 16 17 Blood Pressure 122/74 Blood Pressure [Ri ght Upper Arm] Pulse Oximetry 95 95 95 Oxygen Delivery Me thod 01/18/25 17:01 01/18/25 17:19 01/18/25 17:20 Temperature Pulse Rate 51 L 38 L 38 L Pulse Rate [Pulse Oximeter] Respiratory Rate 13 16 24 Blood Pressure 119/67 116/70 Blood Pressure [Ri ght Upper Arm] Pulse Oximetry 95 92 93 Oxygen Delivery Me thod This 64 year male is alert, interactive, no apparent distress. Sitting up in the bed in exam room 3, conversive and very pleasant. Sclera clear, face atraumatic, speech normal. Does have a santiago, neck is thicker, cannot really appreciate jugular venous distension but difficult to assess. Neck without masses, nontender. Lungs maybe with more fibrotic sounding crackles at bases, clear elsewhere, no wheezing, no tachypnea, no accessory muscle use. Heart rate is very slow, do not hear any murmur, normal S1-S2. Abdomen is distended but soft, no rebound or guarding, no organomegaly, do hear bowel sounds. He has about trace to 1+ edema along his anterior tibias on both of his lower legs. See no erythema or concerning rash. Documenting provider has reviewed patient's vital signs: yes Course Course ED Course: This patient is concerning in his history. He really has not been making any urine output and bladder scan only has 29 mL in it. He just has not been feeling well, certainly with the bradycardia I have concerns about kidney issues or renal failure with him. He could have on her lying illnesses well, will get troponins, will look at a portable chest x-ray. Nursing staff will be placing an IV, get full complement of labs and look at portable chest x-ray. Will have him on cardiac monitoring given his bradycardia and the wide complex with history of atrial fibrillation. Will be talking to Cardiology at [place] right away. I have concerns that this patient is gravely ill but thankfully clinically he is alert and conversive. Reevaluation(s) Time of Reevaluation #1: 17:11 Reevaluation #1: Have reviewed with patient that he is critically ill. Have reviewed that he is in renal failure, this explains the lack of urine output the last 4 days. He has critically elevated potassium. We will be flying him via helicopter so he can receive emergent hemodialysis. [facility] has accepted. Time of Reevaluation #2: 17:31 Reevaluation #2: [facility] here, have given report and they will be assuming patient responsibility, transferring to [place]. We do have a bed for him, will leave immediately. Did order a portable chest x-ray on this gentleman but due to the acuity and on and need for quick transfer, need for providing quick medication management, there really wasn't time for this. Did not want to delay in transfer obtaining this. Consultations Consultation #1: Have reviewed with Dr. Junior from [facility], was able to send last EKG from December as well as his EKG from today. This does look like idioventricular rhythm, QRS length is 170 milliseconds. It looks similar in morphology to the 1 in December of last year but the QRS length was 142 milliseconds. He still looks irregular on his EKG today much like AFib. Dr. Oropeza he and I both share the same thoughts that the patient is probably in renal failure, do not have electrolytes back. His lactate is back at 4.2. Will initiate a L of IV fluids carefully over the next 2 hours. Will ask lab to see where he is that as far is his chemistries coming back. May need to initiate further interventions. Did call lab and his potassium came back at 8.9, this was within probably 5-10 minutes of talking to [facility]. We did call [facility] back, spoke with Dr. Junior and we conferenced in the box feeder Dr. Delgadillo. He wanted a bicarb drip started with D5. I then canceled some of the other orders that I had placed. I had ordered calcium gluconate, 10 units regular insulin followed by an amp of 25 g of glucose or D50. I had ordered some D10 maintenance and an amp of sodium bicarb but will switch to the bicarb drip with D5. I have instructed nursing staff to check Accu-Cheks Q 30 minutes. We can try to repeat some insulin and glucose as long as we are monitoring closely. We have paged for helicopter transfer. [facility] is trying to make space for him emergently. Ear care is necessary as this patient is critical, could go into cardiac arrest with his current potassium. Time: 16:30 Vital Signs Vital signs: Initial Vital Signs Temperature 97.7 F 01/18/25 15:24 Temperature Source Temporal Artery Scan 01/18/25 15:24 Pulse Rate 46 L 01/18/25 15:24 Pulse Rhythm Regular 01/18/25 15:24 Respiratory Rate 18 01/18/25 15:24 Blood Pressure 131/67 01/18/25 15:24 Blood Pressure Mean 88 01/18/25 15:24 Blood Pressure Position Sitting 01/18/25 15:24 Pulse Oximetry 95 01/18/25 15:24 Oxygen Delivery Method Room Air 01/18/25 15:24 Vital Signs Temperature 97.7 F 01/18/25 15:24 Pulse Rate 46 L 01/18/25 15:24 Respiratory Rate 18 01/18/25 15:24 Blood Pressure 131/67 01/18/25 15:24 Pulse Oximetry 95 01/18/25 15:24 Oxygen Delivery Method Room Air 01/18/25 15:24 Temperature 97.7 F 01/18/25 15:24 Pulse Rate 38 L 01/18/25 17:20 Respiratory Rate 24 01/18/25 17:20 Blood Pressure 116/70 01/18/25 17:19 Pulse Oximetry 93 01/18/25 17:20 Oxygen Delivery Method Room Air 01/18/25 15:24 Medications Administered Medications: Discontinued Medications Generic Name Dose Route Start Last Admin Trade Name Freq PRN Reason Stop Dose Admin Dextrose 25 gm 01/18/25 16:51 01/18/25 17:05 Dextrose 50 % Syringe IVP 01/18/25 16:52 25 gm ONCE ONE Administration Sodium Chloride 1,000 mls @ 500 mls/hr 01/18/25 16:36 01/18/25 16:47 0.9 % Sodium Chloride 1000 Ml IV 01/18/25 18:35 500 mls/hr .Q2H BHARTI Administration Calcium Gluconate/Sodium Chloride 1,000 mg in 50 mls @ 100 mls/hr 01/18/25 16:50 01/18/25 17:46 Calcium Gluc 1,000mg/50 Ml IVPB 01/18/25 17:19 Infused ONCE ONE Infusion Dextrose 500 mls @ 50 mls/hr 01/18/25 16:52 01/18/25 17:12 10 % Dextrose 500 Ml IV Not Given .Q10H BHARTI Sodium Bicarbonate 150 meq/ 1,150 mls @ 150 mls/hr 01/18/25 17:15 01/18/25 17:23 Dextrose IV 150 mls/hr .Q7H40M BHARTI Administration Insulin Human Regular 10 unit 01/18/25 16:51 01/18/25 17:05 Insulin Regular, Human 100 Unit/Ml Vial IVP 01/18/25 16:52 10 unit ONCE ONE Administration Sodium Bicarbonate 50 meq 01/18/25 16:55 01/18/25 17:13 Sodium Bicarbonate 50 Meq/50ml Syringe IVP 01/18/25 16:56 Not Given ONCE ONE Sodium Bicarbonate 50 meq 01/18/25 17:00 01/18/25 17:22 Sodium Bicarbonate 50 Meq/50ml Syringe IVP 01/18/25 17:01 Not Given ONCE ONE Sodium Zirconium Cyclosilicate 10 gm 01/18/25 16:53 01/18/25 17:13 Sodium Zirconium Cyclosilicate 10 Gm PO 01/18/25 16:54 10 gm ONCE ONE Administration Medical Decision Making Lab Data Labs: Lab Results 01/18/25 01/18/25 Range/Units 16:02 16:11 WBC 8.51 (4.50-11.00) K/uL RBC 3.94 L (4.30-5.90) m/uL Hgb 12.0 L (13.5-17.5) gm/dL Hct 38.3 (37.0-53.0) % MCV 97 (80-100) fL MCH 31 (26-34) pg MCHC 31 L (32-36) gm/dL RDW Coeff of Surya 12.9 (11.5-15.5) % Plt Count 268 (140-440) K/uL Neut % (Auto) 75.3 H (42.0-72.0) % Lymph % (Auto) 17.2 L (20-44) % [place] % (Auto) 6.6 (0.0-11.0) % Eos % (Auto) 0.5 (0.0-7.0) % Baso % (Auto) 0.2 (0.0-3.0) % Neut # (Auto) 6.40 (1.7-7.0) K/uL Lymph # (Auto) 1.50 (0.90-2.90) K/uL [place] # (Auto) 0.60 (0.00-0.90) K/UL Eos # (Auto) 0.00 (0.00-0.50) K/uL Baso # (Auto) 0.00 (0.00-0.30) K/uL Abs Immat Gran (auto) 0.00 (0.00-0.30) K/uL Imm/Tot Granulo (auto) 0.2 % Sodium 134 L (135-149) mmol/L Potassium 8.9 H* (3.6-5.1) mmol/L Chloride 102 (96-114) mmol/L Carbon Dioxide 8 L* (20-32) mmol/L Anion Gap 24 H (7-15) mEq/L BUN 105 H (7-30) mg/dL Creatinine 12.2 H (0.5-1.5) mg/dL Estimated Creat Clear 6.71 Estimated GFR 4 ml/min Glucose 79 (60-115) mg/dL Lactate 4.2 H* (0.5-1.9) mmol/L Calcium 9.8 (8.4-10.6) mg/dL Magnesium 2.5 (1.5-2.6) mg/dL Total Bilirubin 0.6 (0.1-1.5) mg/dL Direct Bilirubin Not Reportable AST 35 (12-35) U/L ALT 44 (4-50) U/L Alkaline Phosphatase 89 (40-150) U/L Troponin I 0.05 H (0.01-0.04) ng/mL NT-Pro-B Natriuret Pep 5240 H (See Note) pg/mL Total Protein 7.9 (6.0-8.3) g/dL Albumin 4.6 (3.3-5.0) g/dL POC Troponin I 0.00 L (0.01-0.04) ng/ml ECG Data Attestation: I personally reviewed and interpreted this ECG as follows: (Sinus bradycardia at 39 bpm, do not see P waves) Critical Care Time Critical Care Time Critical Care Time: Yes Attestation: The patient required my highest level preparedness to intervene emergently and I personally spent this critical care time directly and personally managing the patient. This critical care time included: Obtaining a history; Examining the patient; Pulse oximetry; Ordering and reviewing of studies; Arranging urgent treatment with development of a management plan; Evaluation of patients response to treatment; Frequent reassessment discussions with other providers. This critical care time was performed to assess and manage the high probability of imminent life-threatening deterioration that could result in multiorgan failure. It was exclusive of separate billable procedures and treating other patients and teaching time. Total Critical Care Time in Minutes: 94 Discharge Plan Discharge Clinical Impression: Acute hyperkalemia, AV heart block, Bradycardia Acute renal failure Qualifiers: Acute renal failure type: unspecified Qualified Code(s): N17.9 - Acute kidney failure, unspecified Patient Disposition: Xfer [facility] Discharge Location: [facility] Prescriptions: No Action acetaminophen 650 mg tablet extended release 650 mg PO Q8H multivitamin [Multiple Vitamins] Tablet 1 tab PO QDAY atorvastatin 20 mg tablet 20 mg PO HS Qty: 90 3RF chlorthalidone 25 mg tablet See Rx Instructions .ROUTE .COMPLEX Qty: 90 3RF Dose Instruction: TAKE 1 TABLET (25 MG) BY MOUTH ONCE DAILY Rx Instructions: TAKE 1 TABLET (25 MG) BY MOUTH ONCE DAILY lisinopril 40 mg tablet 40 mg PO DAILY Qty: 90 3RF metoprolol succinate 100 mg tablet extended release 24 hr 100 mg PO DAILY Qty: 90 3RF Xarelto 20 mg tablet See Rx Instructions .ROUTE .COMPLEX Qty: 90 3RF Dose Instruction: TAKE 1 TABLET BY MOUTH ONCE DAILY WITH MEAL Rx Instructions: TAKE 1 TABLET BY MOUTH ONCE DAILY WITH MEAL ferrous gluconate 236 mg (27 mg iron) tablet 236 mg PO QDAY Wegovy 0.25 mg/0.5 mL pen injector 0.25 mg subcut QWEEK Qty: 2 0RF Rx Instructions: administer weeks 1 through 4 of therapy sennosides [Senna Lax] 8.6 mg Tablet 17.2 mg PO BID PRN (Reason: constipation) Qty: 100 0RF omeprazole 20 mg tablet,delayed release (DR/EC) 20 mg PO QDAY metformin 500 mg tablet See Rx Instructions .ROUTE .COMPLEX Qty: 270 3RF Dose Instruction: TAKE 1 TABLET BY MOUTH WITH BREAKFAST AND 2 TABLETS WITH SUPPER (TAKE WITH MEALS) Rx Instructions: TAKE 1 TABLET BY MOUTH WITH BREAKFAST AND 2 TABLETS WITH SUPPER (TAKE WITH MEALS) gabapentin 300 mg capsule See Rx Instructions PO .ud Qty: 120 11RF Rx Instructions: 300 mg q.a.m. and Q midday, and 600 mg at at bedtime orally UD; Wegovy 0.5 mg/0.5 mL pen injector 0.5 mg subcut QWEEK Qty: 2 0RF Rx Instructions: administer weeks 5 through 8 of therapy Wegovy 1 mg/0.5 mL pen injector 1 mg subcut Q7D Qty: 2 0RF Wegovy 1.7 mg/0.75 mL pen injector 1.7 mg subcut QWEEK Qty: 3 0RF Rx Instructions: administer weeks 13 through 16 of therapy Wegovy 2.4 mg/0.75 mL pen injector 2.4 mg subcut QWEEK Qty: 3 0RF Stand Alone Forms: My[employer] Info Instructions
[2025-01-18 16:25] LABS: Immature Granulocytes Pct Auto 0.2 %; Mean Corpuscular HGB Conc 31 gm/dL (32-36); Mean Corpuscular Hemoglobin 31 pg (26-34); Mean Corpuscular Volume 97 fL (80-100); Slide Review Reflex No
[2025-01-18 16:29] LABS: Lactate* 4.2 mmol/L (0.5-1.9)
[2025-01-18 16:37] LABS: Basophils Percent Auto 0.2 % (0.0-3.0); Eosinophils Percent Auto 0.5 % (0.0-7.0); Hematocrit 38.3 % (37.0-53.0); Lymphocytes Percent Auto 17.2 % (20-44); Monocytes Percent Auto 6.6 % (0.0-11.0); Neutrophils Percent Auto 75.3 % (42.0-72.0); Platelet Count* 268 K/uL (140-440); RDW Coefficient of Variation % 12.9 % (11.5-15.5); Red Blood Count 3.94 m/uL (4.30-5.90); White Blood Count* 8.51 K/uL (4.50-11.00)
[2025-01-18 16:47] LABS: Albumin* 4.6 g/dL (3.3-5.0); Chloride* 102 mmol/L (96-114); Sodium* 134 mmol/L (135-149)
[2025-01-18] MEDS: 0.9 % SODIUM CHLORIDE 1000 ml 1,000 ML 500 ML IV (16:47)
[2025-01-18 16:49] LABS: Alanine Aminotransferase* 44 U/L (4-50); Aspartate Amino Transferase* 35 U/L (12-35); Blood Urea Nitrogen* 105 mg/dL (7-30); Creatinine* 12.2 mg/dL (0.5-1.5); Est. Creatinine Clearance* 6.71; Estimated Glomerular Filt Rate 4 ml/min
[2025-01-18 16:50] LABS: Alkaline Phosphatase* 89 U/L (40-150); Anion Gap 24 mEq/L (7-15); Bilirubin Total* 0.6 mg/dL (0.1-1.5); Calcium* 9.8 mg/dL (8.4-10.6); Glucose* 79 mg/dL (60-115); Magnesium* 2.5 mg/dL (1.5-2.6); Potassium* 8.9 mmol/L (3.6-5.1); Total Protein* 7.9 g/dL (6.0-8.3)
[2025-01-18 16:57] LABS: Carbon Dioxide* 8 mmol/L (20-32)
[2025-01-18 17:00] LABS: NT Pro B Type NatriureticPept* 5240 pg/mL (See Note)
[2025-01-18 17:02] LABS: Troponin I* 0.05 ng/mL (0.01-0.04)
--- NOTE | 2025-01-18 17:04 | ED.NURSE ---
MD requested transfer via air, [facility] contacted. Also requested fluid bolus be stopped and this was done.
[2025-01-18] MEDS: INSULIN REGULAR, HUMAN 100 UNIT/ML VIAL 10 UNIT IVP (17:05)
[2025-01-18] MEDS: DEXTROSE 50 % SYRINGE IVP (17:05)
[2025-01-18] MEDS: CALCIUM GLUC 1,000MG/50 ML 1,000 MG/50 ML BAG 100 MG IVPB (17:11)
[2025-01-18] MEDS: SODIUM ZIRCONIUM CYCLOSILICATE 10 GM PO (17:13)
== END 2025-01-18 18:11 | disposition short-term general hospital (02) ==
PROVIDERS: Emergency Provider Family Medicine; PCP Family Medicine
DX: E87.5 Hyperkalemia (principal); I44.30 Unspecified atrioventricular block; R00.1 Bradycardia, unspecified; I48.20 Chronic atrial fibrillation, unspecified; R63.0 Anorexia; R53.1 Weakness; R19.7 Diarrhea, unspecified; R06.02 Shortness of breath; Z79.01 Long term (current) use of anticoagulants
CPT/HCPCS: 36415; 51798; 80053; 80076; 81001; 82962; 83605; 83735; 83880; 84484; 85025; 93005; 94761; 99284; 99291; J0613; J1815; J7030; J7070